=== PATIENT | female | born 1940 | race Caucasian/White ===

== ENCOUNTER → 2016-07-22 | Day surgery (SDC) | payer OTHER, BC ==
[2016-07-16 12:35] VITALS: BMI 26.0
[~2016-07-22] VITALS: Ht 160 cm; Wt 68.2 kg
[~2016-07-22] MED LIST: LIDOCAINE HCL 2% 2 ML VIAL (20MG/ML) ONE; METO25TA56 PO; MIDAZOLAM HCL 1 MG/ML 2ML VIAL ONE; NXM/40 PO; ONDANSETRON INJ 2 MG/ML 2 ML VIAL ONE; PROPOFOL IV EMULSION 10 MG/ML 20 ML VIAL IV ONE; SODIUM CHLORIDE 0.9% 500ML 500 ML IV ONE
[2016-07-22 07:57] VITALS: Ht 160 cm; Wt 68.2 kg
--- NOTE | 2016-07-22 08:37 | Endo History and Physical ---
History & Physical Date of Service: Jul 22, 2016. Chief Complaint: HX COLON CA Referring Physician: DR. FELIPE History of Present Illness 75 yo CF who presents for colonoscopy secondary to history of colon cancer. Past Medical History Hypertension Past Surgical History Hx Cardiac Surgery: No Hx Internal Defibrillator: No Hx Pacemaker: No Hx Abdominal Surgery: Yes (ROBBY BSO) Hx Post-Op Nausea and Vomiting: No Hx Cancer Surgery: Yes (COLON RESECTION) Hx Thoracic Surgery: No Hx Orthopedic: No Hx Urinary Tract Surgery: No Family History None Social History Smoking Status: Never Smoker Hx Substance Use: No Hx Alcohol Use: No Allergies Coded Allergies: Penicillins (Verified Adverse Reaction, Unknown, SWELLING, 07/22/16) Current Medications Reported Home Medications Medications Dose Route/Sig Max Daily Dose Days Date Category Nexium (Esomeprazole Magnesium) 40 Mg Capcr 40 Mg PO QAM 07/16/16 Reported Lopressor (Metoprolol Tartrate) 25 Mg Tab 25 Mg PO BID 06/03/08 Reported Vital Signs Weight (Kilograms): 68.18 Height (Feet): 5 Height (Inches): 3 Date Time Temp Pulse Resp B/P Pulse Ox O2 Delivery O2 Flow Rate FiO2 07/22/16 07:59 36.9 70 20 152/79 97 Room Air Physical Exam General Appearance: WD/WN, no apparent distress Respiratory/Chest: Auscultation: breath sounds normal Cardiovascular: Heart Auscultation: RRR Abdomen: Bowel Sounds: normal Inspection & Palpation: soft, non-distended, no tenderness, guarding & rebound Assessment and Plan Assessment: 75 yo CF who presents for colonoscopy secondary to history of colon cancer. Plan: Proceed with colonoscopy.
--- NOTE | 2016-07-22 08:53 | Discharge Instructions ---
Endoscopy Patient Instructions Date / Procedure(s) Performed Jul 22, 2016. Colonoscopy Allergy Information Coded Allergies: Penicillins (Verified Adverse Reaction, Unknown, SWELLING, 07/22/16) Discharge Date / Findings Jul 22, 2016. Internal hemorrhoids Normal ileocolic anastomosis Medication Instructions OK to resume all medications today as prescribed Reported Home Medications Medications Dose Route/Sig Max Daily Dose Days Date Category Nexium (Esomeprazole Magnesium) 40 Mg Capcr 40 Mg PO QAM 07/16/16 Reported Lopressor (Metoprolol Tartrate) 25 Mg Tab 25 Mg PO BID 06/03/08 Reported Provider Instructions Activity Restrictions - No exercising or heavy lifting for 24 hours. - Do not drink alcohol the day of the procedure. - Do not drive a car or operate machinery until the day after the procedure. - Do not make any important decisions or sign important papers in 24 hours after the procedure. Following Day: - Return to full activity which may include returning to work/school. Diet Start your diet with liquids and light foods (jello, soup, juice, toast). Then eat your usual diet if not nauseated. Treatment For Common After Affects For mild abdominal pain, bloating, or excessive gas: - Rest - Eat lightly - Lie on right side Follow-Up Information Follow-up with DR. FELIPE as scheduled Anesthesia Information What You Should Know You have had a procedure that required some medicine to reduce anxiety and discomfort. This treatment is called moderate sedation. After receiving the treatment, you may be sleepy, but you will be able to breathe on your own. The effects of the treatment may last for several hours. Follow these instructions along with Activity/Diet recommendations noted above: * Do NOT do anything where dizziness or clumsiness would be dangerous. * Rest quietly at home today, then you can be up and about tomorrow. * Have a responsible person stay with you the rest of today. * You may have had an I.V. today. If so, you may take the dressing off later today. Recommendations Call your doctor if: * Trouble breathing * Continuous vomiting for more than 24 hours * Temperature above 101 degrees * Severe abdominal pain or bloating * Pain not relieved by pain medicine ordered * There is increased drainage or redness from any incision * A large amount of rectal bleeding greater than 2-3 tablespoons. (If you had a polyp/s removed or have hemorrhoids, a small amount of blood - from the rectum is to be expected.) * You have any unanswered questions or concerns. IN THE EVENT OF A SERIOUS EMERGENCY, GO TO THE NEAREST EMERGENCY ROOM Your discharge instructions were prepared by provider Paras Rodriguez. Patient Instructions Signature Page Ebony Segal Patient (or Guardian) Signature/Date: I have read and understand the instructions given to me by my caregivers. Caregiver/RN/Doctor Signature/Date: The above-named patient and/or guardian has received patient instructions on this date. + Original Patient Signature Page (only) stays with chart. Please make copy for patient.
--- NOTE | 2016-07-22 08:59 | GI REPORT ---
Procedure Date: 07/22/2016 8:31 AM Procedure: Colonoscopy Indications: High risk colon cancer surveillance: Personal history of colon cancer Medicines: Monitored Anesthesia Care Complications: No immediate complications. Estimated Blood Loss: Estimated blood loss: none. Procedure: Pre-Anesthesia Assessment: - Prior to the procedure, a History and Physical was performed, and patient medications and allergies were reviewed. The patient's tolerance of previous anesthesia was also reviewed. The risks and benefits of the procedure and the sedation options and risks were discussed with the patient. All questions were answered, and informed consent was obtained. Prior Anticoagulants: The patient has taken no previous anticoagulant or antiplatelet agents. ASA Grade Assessment: II - A patient with mild systemic disease. After reviewing the risks and benefits, the patient was deemed in satisfactory condition to undergo the procedure. After I obtained informed consent, the scope was passed under direct vision. Throughout the procedure, the patient's blood pressure, pulse, and oxygen saturations were monitored continuously. The scope was introduced through the anus and advanced to the terminal ileum. The colonoscopy was performed without difficulty. The patient tolerated the procedure well. The quality of the bowel preparation was good. The terminal ileum, ileocecal valve, appendiceal orifice, and rectum were photographed. Findings: There was evidence of a prior [id number] ileo-colonic anastomosis in the sigmoid colon. This was patent and was characterized by healthy appearing mucosa. The anastomosis was traversed. Non-bleeding internal hemorrhoids were found during retroflexion. The hemorrhoids were small. Impression: - Patent [id number] ileo-colonic anastomosis, characterized by healthy appearing mucosa. - Non-bleeding internal hemorrhoids. - No specimens collected. Recommendation: - Resume previous diet. - Continue present medications. - Repeat colonoscopy in 1 year for surveillance. - Return to primary care physician as previously scheduled. Paras Rodriguez DO 07/22/2016 8:58:42 AM This report has been signed electronically. Note Initiated On: 07/22/2016 8:31 AM I attest to the content of the Intraoperative Record and orders documented therein, exceptions below
[2016-07-22 09:23] VITALS: BP 115/66; PULSE 58; O2SAT 93
--- NOTE | 2016-07-22 15:16 | Anesthesiology Progress Note ---
Anesthesia Post Op Note Date & Time Jul 22, 2016 at 15:16 Vital Signs Pain Intensity: 0 Vital Signs Past 12 Hours Date Time Temp Pulse Resp B/P Pulse Ox O2 Delivery O2 Flow Rate FiO2 07/22/16 09:23 58 20 115/66 93 Room Air 07/22/16 09:07 66 20 128/60 93 Room Air 07/22/16 08:53 68 20 115/61 99 Room Air 07/22/16 07:59 36.9 70 20 152/79 97 Room Air Notes Mental Status: alert / awake / arousable, participated in evaluation Pt Amnestic to Procedure: Yes Nausea / Vomiting: adequately controlled Pain: adequately controlled Airway Patency, RR, SpO2: stable & adequate BP & HR: stable & adequate Hydration State: stable & adequate Anesthetic Complications: no major complications apparent
== END | disposition home or self-care (01) ==
LOC: C.GI 07:40
PROVIDERS: ATTEND Internal Medicine
DX: Z12.11 Encounter for screening for malignant neoplasm of colon (principal); Z85.038 Personal history of other malignant neoplasm of large intestine; Z98.0 Intestinal bypass and anastomosis status; K64.8 Other hemorrhoids; I10 Essential (primary) hypertension; Z90.49 Acquired absence of other specified parts of digestive tract; Z90.89 Acquired absence of other organs; Z88.0 Allergy status to penicillin

== ENCOUNTER → 2016-08-04 | Outpatient (CLI) | payer OTHER, BC ==
[~2016-08-04] MED LIST changes: -LIDOCAINE HCL 2% 2 ML VIAL (20MG/ML) ONE; -MIDAZOLAM HCL 1 MG/ML 2ML VIAL ONE; -ONDANSETRON INJ 2 MG/ML 2 ML VIAL ONE; -PROPOFOL IV EMULSION 10 MG/ML 20 ML VIAL IV ONE; -SODIUM CHLORIDE 0.9% 500ML 500 ML IV ONE
[2016-08-04 13:20] LABS: ESTIMATED AVERAGE GLUCOSE 143 mg/dl; HA1C FLAG Normal (Normal)
[2016-08-04 13:27] LABS: BLOOD UREA NITROGEN 11 mg/dl (7-18); CALCIUM 8.8 mg/dl (8.5-10.1); CARBON DIOXIDE 26 mmol/L (21-32); CHLORIDE 110 mmol/L (98-107); CREATININE 0.89 mg/dl (0.60-1.20); GLUCOSE 116 mg/dl (70-99); POTASSIUM 3.9 mmol/L (3.5-5.1); SODIUM 144 mmol/L (136-145)
== END | disposition home or self-care (01) ==
LOC: C.LABPBG 08:14
PROVIDERS: ATTEND Family Medicine
DX: I10 Essential (primary) hypertension (principal); R73.09 Other abnormal glucose

== ENCOUNTER → 2017-04-24 | Outpatient (CLI) | payer OTHER, BC ==
--- NOTE | 2017-04-24 15:50 | MAMMOGRAPHY REPORT ---
BILATERAL DIGITAL SCREENING MAMMOGRAM TOMOSYNTHESIS WITH CAD: 04/24/2017 CLINICAL HISTORY: Routine screening. TECHNIQUE: Breast tomosynthesis in addition to standard 2D mammography was performed. Current study was also evaluated with a Computer Aided Detection (CAD) system. COMPARISON: Comparison is made to exams dated: 04/23/2016 mammogram - [facility], 04/17/2015 mammogram, 04/13/2014 mammogram, 04/11/2013 mammogram, 04/08/2012 mammogram, and 04/01/2011 mammogram - [facility] BREAST COMPOSITION: There are scattered areas of fibroglandular density in both breasts. FINDINGS: No suspicious masses, calcifications, or areas of architectural distortion are noted in ei ther breast. There has been no significant interval change compared to prior exams. Scattered bilater al benign-appearing calcifications are not significantly changed. IMPRESSION: ACR BI-RADS CATEGORY 2: BENIGN There is no mammographic evidence of malignancy. A 1 year screening mammogram is recommended. The pa tient will receive written notification of the results. Approximately 10% of breast cancers are not detected with mammography. A negative mammographic report should not delay biopsy if a clinically suggestive mass is present. Era King M.D. ah/:04/24/2017 15:31:21 [employer] Spr[employer] Mixer: Sil COLINDRES)(M), [facility] letter sent: Normal 1/2 BI-RADS Code: ACR BI-RADS Category 2: Benign
== END | disposition home or self-care (01) ==
LOC: C.MAMM 13:54
PROVIDERS: ATTEND Family Medicine
DX: Z12.31 Encounter for screening mammogram for malignant neoplasm of breast (principal)

== ENCOUNTER → 2017-05-06 | Outpatient (CLI) | payer OTHER, BC ==
[~2017-05-06] MED LIST changes: +OPTIRAY 320 IV PRN
--- NOTE | 2017-05-06 12:58 | DIAGNOSTIC IMAGING REPORT ---
ABDOMEN AND PELVIS CT WITH IV AND ORAL CONTRAST CT DOSE: 695.87 mGy.cm HISTORY: Colon cancer. Follow-up. TECHNIQUE: Multiaxial CT images of the abdomen and pelvis were performed following the use of intravenous and oral contrast. A dose lowering technique was utilized adhering to the principles of ALARA. COMPARISON STUDY: Abdomen and pelvis CT 05/08/2016. FINDINGS: Hepatic steatosis. No hepatic or splenic masses. The adrenal glands, pancreas, gallbladder are unremarkable. There are few bilateral small peripelvic renal cysts. The kidneys enhance normally. No hydronephrosis. There is a 1.6 cm lipoma within the proximal duodenum. The bladder is unremarkable. Hysterectomy. There is again noted postoperative changes consistent with a subtotal colectomy with ileocolonic anastomosis. No bowel wall thickening or obstruction. No retroperitoneal lymphadenopathy. No pelvic lymphadenopathy. The lung bases are clear. No pneumoperitoneum. No pneumatosis. No suspicious lytic or blastic osseous lesions. Degenerative changes within the lumbar spine. IMPRESSION: 1. No evidence for metastatic disease within the abdomen or pelvis. 2. Postoperative changes as described above. Electronically signed by: Wilton Brambila M.D. 05/06/2017 12:57 PM Dictated Date/Time: 05/06/2017 12:39 PM
--- NOTE | 2017-05-06 13:11 | DIAGNOSTIC IMAGING REPORT ---
CT SCAN OF THE CHEST WITH IV CONTRAST CLINICAL HISTORY: Colon cancer. COMPARISON STUDY: Chest CT scans dated 05/08/2016 and 06/13/2015. TECHNIQUE: Following the IV administration of 117 cc of Optiray 320, CT scan of the thorax was performed from the thoracic inlet to the upper abdomen. Images are reviewed in the axial, sagittal, and coronal planes. IV contrast was administered without complication. A dose lowering technique was utilized adhering to the principles of ALARA. FINDINGS: Thyroid: Imaged portions of the thyroid gland are normal in size and attenuation. Thoracic aorta: The thoracic aorta is normal in caliber and demonstrates standard 3-vessel arch anatomy. No dissection is seen. Pulmonary vasculature: The pulmonary trunk is normal in caliber. There are no filling defects identified in the central pulmonary vessels to indicate pulmonary embolus. Note that this examination was not protocoled for evaluation of the pulmonary arteries. Heart: The heart is normal in size and configuration, and without pericardial effusion. Lungs and pleural spaces: There is biapical scarring. No airspace consolidation or pleural effusion is seen. The trachea and central airways are clear. 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 A calcified granuloma is present at the left lung base. No concerning pulmonary lesion is seen. Mediastinum: There is no mediastinal lymphadenopathy. Rosalinda: Clear. Axillae: There is no axillary lymphadenopathy. Upper abdomen: Findings suggest hepatic steatosis. A duodenal lipoma is noted. Partially visualized upper abdominal viscera is otherwise within normal limits. Skeletal structures: The skeletal structures are osteopenic. No lytic or blastic bony lesions are seen. IMPRESSION: 1. There is no evidence of intrathoracic metastatic disease. 2. The lungs are clear. Electronically signed by: Last Bradford M.D. 05/06/2017 1:10 PM Dictated Date/Time: 05/06/2017 1:06 PM
== END | disposition home or self-care (01) ==
LOC: C.CTS 09:31
PROVIDERS: ATTEND Colon & Rectal Surgery
DX: C18.9 Malignant neoplasm of colon, unspecified (principal)

== ENCOUNTER → 2017-07-22 | Day surgery (SDC) | payer OTHER, BC ==
[2017-07-13 08:38] VITALS: Ht 160 cm; Wt 69.5 kg
[~2017-07-22] VITALS: Ht 160 cm; Wt 69.5 kg
[~2017-07-22] MED LIST changes: +LIDOCAINE HCL 2% 2 ML VIAL (20MG/ML) ONE; +MIDAZOLAM HCL 1 MG/ML 2ML VIAL ONE; +ONDANSETRON INJ 2 MG/ML 2 ML VIAL ONE; -OPTIRAY 320 IV PRN; +PROPOFOL IV EMULSION 10 MG/ML 20 ML VIAL IV ONE; +SODIUM CHLORIDE 0.9% 500ML 500 ML IV ONE
--- NOTE | 2017-07-22 09:15 | Endo History and Physical ---
History & Physical Date of Service: Jul 22, 2017. Chief Complaint: History of Colon CA Referring Physician: Dr. Gold History of Present Illness 76 yo CF who presents for colonoscopy secondary to history of colon cancer. Past Medical History Hypertension Past Surgical History Hx Cardiac Surgery: No Hx Internal Defibrillator: No Hx Pacemaker: No Hx Abdominal Surgery: Yes (ROBBY BSO) Hx of Implantable Prosthesis: No Hx Post-Op Nausea and Vomiting: No Hx Cancer Surgery: Yes (COLON RESECTION) Hx Thoracic Surgery: No Hx Orthopedic: No Hx Urinary Tract Surgery: No Family History None Social History Smoking Status: Never Smoker Hx Substance Use: No Hx Alcohol Use: No Allergies Coded Allergies: Levofloxacin (Verified Allergy, Unknown, ITCHING/RASH, 07/13/17) Penicillins (Verified Adverse Reaction, Unknown, SWELLING, 07/13/17) Current Medications Reported Home Medications Medications Dose Route/Sig Max Daily Dose Days Date Category Nexium (Esomeprazole Magnesium) 40 Mg Capcr 40 Mg PO QAM 07/16/16 Reported Lopressor (Metoprolol Tartrate) 25 Mg Tab 25 Mg PO BID 06/03/08 Reported Vital Signs Weight (Kilograms): 69.55 Height (Feet): 5 Height (Inches): 3 Date Time Temp Pulse Resp B/P (MAP) Pulse Ox O2 Delivery O2 Flow Rate FiO2 07/22/17 08:55 166/96 (119) 07/22/17 08:52 36.9 74 18 153/113 (126) 94 Room Air Physical Exam General Appearance: WD/WN, no apparent distress Respiratory/Chest: Auscultation: breath sounds normal Cardiovascular: Heart Auscultation: RRR Abdomen: Bowel Sounds: normal Inspection & Palpation: soft, non-distended, no tenderness, guarding & rebound Assessment and Plan Assessment: 76 yo CF who presents for colonoscopy secondary to history of colon cancer. Plan: Proceed with colonoscopy
--- NOTE | 2017-07-22 09:42 | Discharge Instructions ---
Endoscopy Patient Instructions Date / Procedure(s) Performed Jul 22, 2017. Colonoscopy Allergy Information Coded Allergies: Levofloxacin (Verified Allergy, Unknown, ITCHING/RASH, 07/22/17) Penicillins (Verified Adverse Reaction, Unknown, SWELLING, 07/22/17) Discharge Date / Findings Jul 22, 2017. History of partial colectomy Internal hemorrhoids Medication Instructions OK to resume all medications today as prescribed Reported Home Medications Medications Dose Route/Sig Max Daily Dose Days Date Category Nexium (Esomeprazole Magnesium) 40 Mg Capcr 40 Mg PO QAM 07/16/16 Reported Lopressor (Metoprolol Tartrate) 25 Mg Tab 25 Mg PO BID 06/03/08 Reported Provider Instructions Activity Restrictions - No exercising or heavy lifting for 24 hours. - Do not drink alcohol the day of the procedure. - Do not drive a car or operate machinery until the day after the procedure. - Do not make any important decisions or sign important papers in 24 hours after the procedure. Following Day: - Return to full activity which may include returning to work/school. Diet Start your diet with liquids and light foods (jello, soup, juice, toast). Then eat your usual diet if not nauseated. Treatment For Common After Affects For mild abdominal pain, bloating, or excessive gas: - Rest - Eat lightly - Lie on right side Follow-Up Information [facility] with [facility] scheduled Anesthesia Information What You Should Know You have had a procedure that required some medicine to reduce anxiety and discomfort. This treatment is called moderate sedation. After receiving the treatment, you may be sleepy, but you will be able to breathe on your own. The effects of the treatment may last for several hours. Follow these instructions along with Activity/Diet recommendations noted above: * Do NOT do anything where dizziness or clumsiness would be dangerous. * Rest quietly at home today, then you can be up and about tomorrow. * Have a responsible person stay with you the rest of today. * You may have had an I.V. today. If so, you may take the dressing off later today. Recommendations Call your doctor if: * Trouble breathing * Continuous vomiting for more than 24 hours * Temperature above 101 degrees * Severe abdominal pain or bloating * Pain not relieved by pain medicine ordered * There is increased drainage or redness from any incision * A large amount of rectal bleeding greater than 2-3 tablespoons. (If you had a polyp/s removed or have hemorrhoids, a small amount of blood - from the rectum is to be expected.) * You have any unanswered questions or concerns. IN THE EVENT OF A SERIOUS EMERGENCY, GO TO THE NEAREST EMERGENCY ROOM Your discharge instructions were prepared by provider Paras Rodriguez. Patient Instructions Signature Page Ebony Segal Patient (or Guardian) Signature/Date: I have read and understand the instructions given to me by my caregivers. Caregiver/RN/Doctor Signature/Date: The above-named patient and/or guardian has received patient instructions on this date. + Original Patient Signature Page (only) stays with chart. Please make copy for patient.
--- NOTE | 2017-07-22 09:52 | GI REPORT ---
Procedure Date: 07/22/2017 9:09 AM Procedure: Colonoscopy Indications: High risk colon cancer surveillance: Personal history of colon cancer Medicines: Monitored Anesthesia Care Complications: No immediate complications. Estimated Blood Loss: Estimated blood loss: none. Procedure: Pre-Anesthesia Assessment: - Prior to the procedure, a History and Physical was performed, and patient medications and allergies were reviewed. The patient's tolerance of previous anesthesia was also reviewed. The risks and benefits of the procedure and the sedation options and risks were discussed with the patient. All questions were answered, and informed consent was obtained. Prior Anticoagulants: The patient has taken no previous anticoagulant or antiplatelet agents. ASA Grade Assessment: II - A patient with mild systemic disease. After reviewing the risks and benefits, the patient was deemed in satisfactory condition to undergo the procedure. After I obtained informed consent, the scope was passed under direct vision. Throughout the procedure, the patient's blood pressure, pulse, and oxygen saturations were monitored continuously. The scope was introduced through the anus and advanced to the ileocolonic anastomosis. The colonoscopy was performed without difficulty. The patient tolerated the procedure well. The quality of the bowel preparation was good. The rectum was photographed. Findings: The perianal and digital rectal examinations were normal. There was evidence of a prior end-to-side ileo-colonic anastomosis in the sigmoid colon. This was patent and was characterized by healthy appearing mucosa. Non-bleeding internal hemorrhoids were found during retroflexion. The hemorrhoids were small. Impression: - Patent end-to-side ileo-colonic anastomosis, characterized by healthy appearing mucosa. - Non-bleeding internal hemorrhoids. - No specimens collected. Recommendation: - Resume previous diet. - Continue present medications. - Repeat colonoscopy in 3 years for surveillance. - Return to primary care physician as previously scheduled. Paras Rodriguez DO 07/22/2017 9:51:59 AM This report has been signed electronically. Note Initiated On: 07/22/2017 9:09 AM I attest to the content of the Intraoperative Record and orders documented therein, exceptions below
--- NOTE | 2017-07-22 10:07 | Anesthesiology Progress Note ---
Anesthesia Post Op Note Date & Time Jul 22, 2017 at 10:07 Vital Signs Pain Intensity: 0 Vital Signs Past 12 Hours Date Time Temp Pulse Resp B/P (MAP) Pulse Ox O2 Delivery O2 Flow Rate FiO2 07/22/17 09:55 61 18 129/82 (98) 95 Room Air 07/22/17 09:41 96 Nasal Cannula 2 07/22/17 09:40 67 20 112/71 (85) 91 Room Air 07/22/17 08:55 166/96 (119) 07/22/17 08:52 36.9 74 18 153/113 (126) 94 Room Air Notes Mental Status: alert / awake / arousable, participated in evaluation Pt Amnestic to Procedure: Yes Nausea / Vomiting: adequately controlled Pain: adequately controlled Airway Patency, RR, SpO2: stable & adequate BP & HR: stable & adequate Hydration State: stable & adequate Anesthetic Complications: no major complications apparent
[2017-07-22 10:10] VITALS: BP 128/82; PULSE 62; O2SAT 97
== END | disposition home or self-care (01) ==
LOC: C.GI 08:23
PROVIDERS: ATTEND Internal Medicine
DX: Z12.11 Encounter for screening for malignant neoplasm of colon (principal); K64.8 Other hemorrhoids; Z85.038 Personal history of other malignant neoplasm of large intestine; I10 Essential (primary) hypertension; E11.9 Type 2 diabetes mellitus without complications; Z88.0 Allergy status to penicillin; Z88.1 Allergy status to other antibiotic agents; Z90.89 Acquired absence of other organs

== ENCOUNTER 2023-04-12 16:42 | Observation (INO) ==
--- NOTE | 2023-04-12 16:50 | ED Triage Note ---
Date of Service April 12, 2023 History of Present Illness This patient was briefly evaluated while in triage. An abbreviated physical exam was performed. This patient is a 82-year-old Female who presents to the ED for evaluation of syncope. She is unsure what happened. She was trimming a roxanne tree and was walking back into living room and passed out. Out for a split second and back up. Struck L arm when passed out. Physical Exam GENERAL: 82 year old female. In no acute distress. SKIN: No lesions or rashes. L upper arm skin tear/superficial lacerations noted. HEART: Regular rate and rhythm. LUNGS: Clear to auscultation. ABDOMEN: Bowel sounds normoactive. No guarding or rigidity. No tenderness of palpation. NEURO: Alert and oriented. No deficits. MUSCULOSKELETAL: No deformities to inspection of the extremities. PSYCH: Patient is pleasant and answers all questions appropriately. Initial orders for labs and / or imaging were placed and patient was placed in the waiting area until a bed is available. Please see further documentation for the full ED course.
--- NOTE | 2023-04-12 17:26 | XRay Report ---
XR chest 1V not portable CLINICAL HISTORY: Syncope. COMPARISON STUDY: Chest CT May 06, 2017. Chest radiograph February 12, 2023. FINDINGS: Lung volumes are normal. Lungs are clear. There is no pneumothorax or pleural effusion. Car diac size is normal. Mediastinal contours are normal. There is no evidence for pulmonary edema. Mild S-shaped curvature of the thoracolumbar spine is incidentally noted. Patient is rotated. IMPRESSION: No acute cardiopulmonary findings. ACT 112: Negative or not required by law. Electronically signed by: Jarrod Alaniz M.D. 04/12/2023 5:24 PM
[2023-04-12 17:34] LABS: Basophils # (auto) 0.03 K/uL (0.00-0.20); Basophils % (auto) 0.4 %; Eosinophils # (auto) 0.17 K/uL (0.00-0.50); Hematocrit (blood only) 39.4 % (37.0-47.0); Hemoglobin 13.3 g/dl (12.0-16.0); Immature Granulocytes # (auto) 0.03 K/uL (0.01-0.20); Immature Granulocytes % (auto) 0.4 %; Lymphocytes # (auto) 1.56 K/uL (1.20-3.40); Lymphocytes % (auto) 18.3 %; Mean Corpuscular Hemoglobin 30.4 pg (25.0-34.0); Mean Corpuscular Hgb Conc 33.8 g/dL (32.0-36.0); Mean Platelet Volume 9.3 fL (9.4-12.4); Monocytes # (auto) 0.66 K/uL (0.11-0.59); Monocytes % (auto) 7.7 %; Neutrophils # (auto) 6.09 K/uL (1.40-6.50); Neutrophils % (auto) 71.2 %; Platelet Count 220 K/uL (130-400); RDW Coefficient of Variation 13.3 % (11.5-14.5); RDW Standard Deviation 43.8 fL (36.4-46.3); Red Blood Count 4.38 M/uL (4.20-5.40); White Blood Count 8.54 K/ul (4.8-10.8)
[2023-04-12 17:43] LABS: Albumin Globulin Ratio 1.5 (0.9-2); Albumin Level 4.2 gm/dl (3.4-5.0); BUN Creatinine Ratio 13.2 (10-20); Bilirubin,Total 0.5 mg/dl (0.2-1.0); Calcium 9.8 mg/dl (8.6-10.3); Creatinine Clr Calc Pharmacy 51.6 ml/min; Est GFR (African American) 83.5 ml/min; Globulin 2.8 gm/dl (2.5-4.0); Magnesium 1.9 mg/dl (1.7-2.4); Potassium 3.8 mmol/L (3.5-5.1)
[2023-04-12 17:50] LABS: Troponin I High Sensitivity 4.4 pg/ml (0-14)
[2023-04-12 17:58] LABS: INR 0.9 (0.9-1.1); Partial Thromboplastin Ratio 0.9; Partial Thromboplastin Time 24.4 Seconds (21.0-31.0); Prothrombin Time 10.3 Seconds (9.0-12.0)
[2023-04-12 17:59] LABS: Thyroid Stimulating Hormone 2.439 uIu/ml (0.300-4.500)
--- NOTE | 2023-04-12 18:20 | Emergency Department Note ---
Impression & Plan Syncope, High serum chloride ED Provider Note NAME: KARRIE MCDONALD AGE: 82 SEX: F : 1940 ARRIVES VIA: Walk-In INFORMANT: Patient ED PROVIDER(S): Narciso Rivera DO CHIEF COMPLAINT: Syncope HPI: Patient is an 82-year-old female with a past medical history of hypertension, diabetes who presents to the ER following a syncopal episode. She was walking and passed out and hit the ground. She woke up right away. She does not believe that she hit her head or neck. Denies any head or neck pain. No chest pain or shortness of breath preceding or following the episode. No belly pain, nausea, vomiting, or diarrhea before hand. No dysuria, urgency, or frequency. No other exacerbating or remitting factors. ADDITIONAL HISTORY OBTAINED: Per HPI Chronic Medical/Social Conditions Affecting Care: Per HPI PAST MEDICAL HISTORY:See Below PAST SURGICAL HISTORY:See Below FAMILY HISTORY:See Below SOCIAL HISTORY:See Below HOME MEDICATIONS:See Below ALLERGIES:See Below VITALS:See Below PHYSICAL EXAMINATION: GENERAL: Sitting up in bed, alert, well appearing, well nourished, no distress, non-toxic EYE EXAM: normal conjunctiva. PERRL and EOM's intact. OROPHARYNX: no exudate, no erythema, lips, buccal mucosa, and tongue normal and mucous membranes are moist NECK: supple, no nuchal rigidity, no adenopathy, non-tender LUNGS: Clear to auscultation. Normal chest wall mechanics HEART: no murmurs, S1 normal and S2 normal ABDOMEN: abdomen soft, non-tender, normo-active bowel sounds, no masses, no rebound or guarding. BACK: Back is symmetrical on inspection and there is no deformity, no midline tenderness, no CVA tenderness. SKIN: Small abrasion to the left mid humerus UPPER EXTREMITIES: upper extremities are grossly normal. LOWER EXTREMITIES: No pitting edema. NEURO EXAM: Normal sensorium, cranial nerves II-XII intact, normal speech, no weakness of arms, no weakness of legs. No drift. Finger to nose intact. Gross sensation intact. MEDICAL DECISION MAKING: Patient is an 82-year-old female who presents ER for above-stated complaint with a syncopal episode without prodromal symptoms. IV was established blood work was obtained. Labs show no significant leukocytosis or anemia. INR unremarkable. BMP with slightly elevated chloride. LFTs bilirubin was unremarkable. Troponin was negative. TSH was normal. UA was clean. CT of the head was unremarkable. Chest x-ray was unremarkable. EKG was nondiagnostic. She was updated bedside. Discussed with the hospitalist for observation due to syncopal event with no prodromal symptoms. External Records Reviewed: Seen Dr. Mcgrath within the past month for elevated blood pressure Consults/Care Managements Discussions: Per [facility] Triage Nursing notes reviewed. Limited review of prior medical records performed Vital Signs: reviewed and remarkable for HTN Differential diagnosis: Differential diagnosis includes etiologies such as vasovagal event, infection, hypoglycemia, electrolyte abnormalities, cardiac sources, intracerebral event, toxicologic, neurologic, as well as others were entertained. ER treatment provided: See below Diagnostics interpreted by me include EKG and cardiac monitoring as listed below: -Cardiac Monitoring: An order was placed for continuous cardiac monitoring. The monitor shows a rate of 80 with sinus rhythm. -ECG: Sinus rhythm rate of 73 Normal axis No PVCs QTc 396 -Laboratory studies:Interpreted by me as stated above in MDM and shown below. Imaging studies: Xrays: As interpreted by me: Portable AP upright 1 view of the chest shows no focal infiltrate CTs show: CT head was negative Procedures:none Critical Care: None Past Med/Surg History Medical History (Updated 04/12/23 @ 20:30 by Narciso Rivera DO) Vitamin D deficiency History of colon cancer (2016) Acid reflux Diet-controlled diabetes mellitus Hypertension, goal below 150/90 Osteopenia Finger fracture Stomach ulcer Surgical History S/P cataract surgery 2020 History of colon resection (06/2015) [place] [facility] [place] pt states she only has 8 inches left of her colon History of tooth extraction History of dilation and curettage History of appendectomy ? pt states she is not sure if her appendix was removed during her hysterectomy S/P tonsillectomy S/P hysterectomy (~1975) [facility]SO Family History Father Diabetes Colorectal cancer Mother Diabetes Brother Hypertension Family history of diabetes mellitus Family hx colonic polyps Sister Family history of diabetes mellitus Other No family history of adverse response to anesthesia Denies family history of Ovarian cancer Prostate cancer Myocardial infarction Breast cancer Social History Smoking Status: Never smoker Second Hand Exposure: No; Do You Dip or Chew Tobacco: No; Hx Alcohol Use: No Hx Substance Use: No Preferred Language: Urdu Communication Ability: Effective Visual Impairment: No Limitations Hearing Ability: Normal Pet Counselor Required: No Beliefs That Will Affect Care: None marital status: Current Living Situation: Spouse current occupational status: retired How many Children do You have: 3 Feels Safe at Home: Yes Childhood Exposure to Second-Hand Smoke: No Diet: regular Diet Comment: regular caffeine: Yes during the past year weight has: remained stable Dental Care, Regularly: Yes Physical Activity Frequency: Daily Physical Activity Frequency Comment: House work Seatbelt Use: always Sunscreen Use: Yes Assistive Devices: Denture - Upper, Denture - Lower and Glasses Allergies Allergies Allergy/AdvReac Type Severity Reaction Status Date / Time Penicillins Allergy Intermediate SWELLING Verified 03/20/23 09:33 levofloxacin Allergy Mild ITCHING/GLEN Verified 03/20/23 09:33 H Home Meds Home Medications Medication Instructions Recorded Confirmed cetirizine 10 mg tablet 10 mg PO DAILY PRN Allergy Symptoms 03/21/22 04/12/23 triamcinolone acetonide 0.1 % 1 applic topical DAILY PRN as 03/20/23 04/12/23 topical cream directed Previous Rx's Medication Instructions Recorded naproxen 500 mg tablet 500 mg PO .COMPLEX pain #45 tabs 11/14/22 esomeprazole magnesium 40 mg 40 mg PO QAM #90 caps 01/22/23 capsule,delayed release metoprolol succinate 25 mg 25 mg PO BID #180 tabs 01/23/23 tablet,extended release 24 hr cholecalciferol (vitamin D3) 50 4,000 unit PO DAILY #90 caps 03/20/23 mcg (2,000 unit) capsule Results & Data (ED) Vital Signs Vital Signs - 24 hr 04/12/23 16:48 04/12/23 18:27 04/12/23 19:00 Temperature 36.3 C L Temperature Source Temporal Artery Scan Pulse Rate 76 69 64 Pulse Rhythm Regular Pulse Strength Normal Respiratory Rate 20 14 Respiratory Effort / Characteristics Non-Labored Spontaneous Respiratory Depth Normal Respiratory Pattern Regular Blood Pressure 199/98 H 182/81 H Blood Pressure Mean 131 98 Blood Pressure Position Sitting Pulse Oximetry 95 95 Oxygen Delivery Method Room Air Room Air Oxygen Flow Rate Sepsis Recent Fever Within 48 Hours No Sepsis New/Unexplained Change in Mental Status No Sepsis Action Taken by Nursing No Action Required 04/12/23 19:02 04/12/23 19:30 04/12/23 19:30 Temperature Temperature Source Pulse Rate 66 69 Pulse Rhythm Pulse Strength Respiratory Rate 30 H 19 Respiratory Effort / Characteristics Respiratory Depth Respiratory Pattern Blood Pressure 158/86 H Blood Pressure Mean 132 Blood Pressure Position Pulse Oximetry 94 93 Oxygen Delivery Method Room Air Oxygen Flow Rate 0 Sepsis Recent Fever Within 48 Hours Sepsis New/Unexplained Change in Mental Status Sepsis Action Taken by Nursing Laboratory Data 04/12/23 17:08 04/12/23 17:08 Lab Results 04/12/23 04/12/23 Range/Units 17:08 19:56 WBC 8.54 (4.8-10.8) K/ul RBC 4.38 (4.20-5.40) M/uL Hgb 13.3 (12.0-16.0) g/dl Hct 39.4 (37.0-47.0) % MCV 90.0 (80.0-100.0) fL MCH 30.4 (25.0-34.0) pg MCHC 33.8 (32.0-36.0) g/dL RDW Std Deviation 43.8 (36.4-46.3) fL RDW Coeff of Srinivasa 13.3 (11.5-14.5) % Plt Count 220 (130-400) K/uL MPV 9.3 L (9.4-12.4) fL Immature Gran % (Auto) 0.4 % Neut % (Auto) 71.2 % Lymph % (Auto) 18.3 % Bertie % (Auto) 7.7 % Eos % (Auto) 2.0 % Baso % (Auto) 0.4 % Neut # (Auto) 6.09 (1.40-6.50) K/uL Lymph # (Auto) 1.56 (1.20-3.40) K/uL Bertie # (Auto) 0.66 H (0.11-0.59) K/uL Eos # (Auto) 0.17 (0.00-0.50) K/uL Baso # (Auto) 0.03 (0.00-0.20) K/uL Immature Gran # (Auto) 0.03 (0.01-0.20) K/uL PT 10.3 (9.0-12.0) Seconds INR 0.9 (0.9-1.1) APTT 24.4 (21.0-31.0) Seconds PTT Ratio 0.9 Sodium 141 (136-145) mmol/L Potassium 3.8 (3.5-5.1) mmol/L Chloride 109 H (98-107) mmol/L Carbon Dioxide 24 (21-32) mmol/L Anion Gap 8 (3-11) BUN 10 (6-23) mg/dl Creatinine 0.76 (0.6-1.2) mg/dl Est Cr Clr Drug Dosing 51.6 ml/min Est GFR ( Amer) 83.5 ml/min Est GFR (Non-Af Amer) 72.0 ml/min BUN/Creatinine Ratio 13.2 (10-20) Glucose 180 H (70-99(Fasting)) mg/dl Calcium 9.8 (8.6-10.3) mg/dl Magnesium 1.9 (1.7-2.4) mg/dl Total Bilirubin 0.5 (0.2-1.0) mg/dl AST 15 (13-39) U/L ALT 15 (7-52) U/L Alkaline Phosphatase 68 (34-104) U/L Troponin I High Sens 4.4 (0-14) pg/ml Total Protein 7.0 (6.0-8.3) gm/dl Albumin 4.2 (3.4-5.0) gm/dl Globulin 2.8 (2.5-4.0) gm/dl Albumin/Globulin Ratio 1.5 (0.9-2) TSH 2.439 (0.300-4.500) uIu/ml Urine Color Yellow Urine Appearance Clear (Clear) Urine pH 7.0 (4.5-7.5) Ur Specific Marshall 1.010 (1.000-1.030) Urine Protein Negative (Negative) Urine Glucose (UA) Negative (Negative) Urine Ketones Negative (Negative) Urine Blood Negative (Negative) Urine Nitrite Negative (Negative) Urine Bilirubin Negative (Negative) Urine Urobilinogen Negative (Negative) Ur Leukocyte Esterase Trace H (Negative) Urine WBC (Auto) 1-5 (0-5) /hpf Urine RBC (Auto) 0-4 (0-4) /hpf U Hyaline Cast (Auto) 0 (0-5) /lpf U Epithel Cells (Auto) 5-10 H (0-5) /lpf Urine Bacteria (Auto) Negative (Negative) Imaging Data Radiologist's Impression: Chest X-Ray 04/12/23 16:50 XR chest 1V not portable CLINICAL HISTORY: Syncope. COMPARISON STUDY: Chest CT May 06, 2017. Chest radiograph February 12, 2023. FINDINGS: Lung volumes are normal. Lungs are clear. There is no pneumothorax or pleural effusion. Cardiac size is normal. Mediastinal contours are normal. There is no evidence for pulmonary edema. Mild S-shaped curvature of the thoracolumbar spine is incidentally noted. Patient is rotated. IMPRESSION: No acute cardiopulmonary findings. ACT 112: Negative or not required by law. Electronically signed by: Jarrod Alaniz M.D. 04/12/2023 5:[address] 04/12/23 16:50 CT OF THE HEAD WITHOUT CONTRAST CLINICAL HISTORY: Syncope. COMPARISON STUDY: Head CT T June 03, 2008. CT DOSE: 547.75 mGy.cm TECHNIQUE: Helical axial images of the head were obtained without IV contrast. Automated exposure control was utilized for the study. A dose lowering technique was utilized adhering to the principles of ALARA. FINDINGS: No acute intracranial hemorrhage, midline shift or mass effect is present. Mild ventricular dilatation is likely due to central atrophy. White matter hypodensity suggests small vessel disease. The basal cisterns are patent. No extra-axial collections are present. There are no findings to suggest acute dural sinus thrombosis or acute territorial infarct. No significant calvarial abnormalities are present. Visualized portions of the sinuses and mastoid air cells are clear. IMPRESSION: No acute intracranial findings. ACT 112: Negative or not required by law. Electronically signed by: Jarrod Alaniz M.D. 04/12/2023 7:28 PM Discharge Plan Visit Data Chief Complaint: Syncope Stated Complaint: PASSED OUT, FELL, CUT L ARM ED Provider: Narciso Rivera Discharge Problem: Syncope, High serum chloride Forms Stand Alone Forms: My [facility] Prescriptions Prescriptions: No Action esomeprazole magnesium 40 mg capsule,delayed release(DR/EC) 40 mg PO QAM Qty: 90 1RF metoprolol succinate 25 mg tablet extended release 24 hr 25 mg PO BID Qty: 180 1RF naproxen 500 mg tablet 500 mg PO .COMPLEX Qty: 45 0RF Rx Instructions: 500 mg PO BID x 14 days, then BID PRN pain; cetirizine 10 mg tablet 10 mg PO DAILY PRN (Reason: Allergy Symptoms) triamcinolone acetonide 0.1 % cream 1 applic topical DAILY PRN (Reason: as directed) cholecalciferol (vitamin D3) 50 mcg (2,000 unit) capsule 4,000 unit PO DAILY Qty: 90 3RF Referrals Referrals: Jannette Mcgrath DO [Primary Care Provider] - Discharge Problem: Syncope Qualifiers: Syncope type: unspecified Qualified Code(s): R55 - Syncope and collapse
--- NOTE | 2023-04-12 19:30 | CT Scan Report ---
CT OF THE HEAD WITHOUT CONTRAST CLINICAL HISTORY: Syncope. COMPARISON STUDY: Head CT T June 03, 2008. CT DOSE: 547.75 mGy.cm TECHNIQUE: Helical axial images of the head were obtained without IV contrast. Automated exposure con trol was utilized for the study. A dose lowering technique was utilized adhering to the principles o f ALARA. FINDINGS: No acute intracranial hemorrhage, midline shift or mass effect is present. Mild ventricular dilatation is likely due to central atrophy. White matter hypodensity suggests small vessel disease. The basal cisterns are patent. No extra-axial collections are present. There are no findings to sugg est acute dural sinus thrombosis or acute territorial infarct. No significant calvarial abnormalities are present. Visualized portions of the sinuses and mastoid air cells are clear. IMPRESSION: No acute intracranial findings. ACT 112: Negative or not required by law. Electronically signed by: Jarrod Alaniz M.D. 04/12/2023 7:28 PM
--- NOTE | 2023-04-12 19:54 | History & Physical Report ---
Date of Service April 12, 2023 Assessment & Plan (1) Syncope: Plan: Patient presents to the hospital following a syncopal episode. Etiology is uncertain, could be vasovagal. We will obtain orthostatic vital signs EKG did not show any arrhythmias. We will obtain 2D echo to rule out any structural heart abnormalities Monitor on telemetry (2) Hypertension, goal below 150/90: Plan: Blood pressure 158/86 Resume home medications Recheck blood pressure (3) Diet-controlled diabetes mellitus: Plan: Blood glucose under good control Continue to monitor blood glucose. Plan Admit to telemetry Full code SCD prophylaxis History of Present Illness Chief Complaint: Syncope Primary Care Provider: Jannette Mcgrath Is an 82-year-old female with a history of hypertension, type 2 diabetes who presents to the hospital today on account of a syncopal episode. According to the patient she was walking from her sitting room to the kitchen when all of a sudden she passed out and dropped to the floor. She said she woke up right away and asked her partner to get her up. She did not feel any palpitations or chest pain or dizziness prior to falling down and she did not lose consciousness. In the emergency department blood pressure was elevated, CT scan of the head was done which did not show any acute pathology. Of note, she said this is the first time she is having this type of episode before. She will be admitted to the hospital for observation. Allergies Allergy/AdvReac Type Severity Reaction Status Date / Time Penicillins Allergy Intermediate SWELLING Verified 03/20/23 09:33 levofloxacin Allergy Mild ITCHING/GLEN Verified 03/20/23 09:33 H Home Medications Medication Instructions Recorded Confirmed Type cetirizine 10 mg tablet 10 mg PO DAILY PRN Allergy Symptoms 03/21/22 04/12/23 History naproxen 500 mg tablet 500 mg PO .COMPLEX pain #45 tabs 11/14/22 04/12/23 Rx esomeprazole magnesium 40 mg 40 mg PO QAM #90 caps 01/22/23 04/12/23 Rx capsule,delayed release metoprolol succinate 25 mg 25 mg PO BID #180 tabs 01/23/23 04/12/23 Rx tablet,extended release 24 hr cholecalciferol (vitamin D3) 50 4,000 unit PO DAILY #90 caps 03/20/23 04/12/23 Rx mcg (2,000 unit) capsule triamcinolone acetonide 0.1 % 1 applic topical DAILY PRN as 03/20/23 04/12/23 History topical cream directed Past Med/Surg History Medical History (Updated 04/12/23 @ 19:52 by Chong Ng MD) Vitamin D deficiency History of colon cancer (2017) Acid reflux Diet-controlled diabetes mellitus Hypertension, goal below 150/90 Osteopenia Finger fracture Stomach ulcer Surgical History S/P cataract surgery 2020 [place]06[place] [facility] [place] pt states she only has 8 inches left of her colon History of tooth extraction History of dilation and curettage History of appendectomy ? pt states she is not sure if her appendix was removed during her hysterectomy S/P tonsillectomy S/P hysterectomy (~1975) [facility]SO Family History Father Diabetes Colorectal cancer Mother Diabetes Brother Hypertension Family history of diabetes mellitus Family hx colonic polyps Sister Family history of diabetes mellitus Other No family history of adverse response to anesthesia Denies family history of Ovarian cancer Prostate cancer Myocardial infarction Breast cancer Social History Smoking Status: Never smoker Second Hand Exposure: No; Do You Dip or Chew Tobacco: No; Hx Alcohol Use: No Hx Substance Use: No Preferred Language: Colombian Communication Ability: Effective Visual Impairment: No Limitations Hearing Ability: Normal Explosive Ordnance Specialist Required: No Beliefs That Will Affect Care: None marital status: Current Living Situation: Spouse current occupational status: retired How many Children do You have: 3 Feels Safe at Home: Yes Childhood Exposure to Second-Hand Smoke: No Diet: regular Diet Comment: regular caffeine: Yes during the past year weight has: remained stable Dental Care, Regularly: Yes Physical Activity Frequency: Daily Physical Activity Frequency Comment: House work Seatbelt Use: always Sunscreen Use: Yes Assistive Devices: Denture - Upper, Denture - Lower and Glasses Review of Systems Review of Systems: All systems reviewed are negative, apart from the ones contained in the history. Physical Exam Physical Exam: The patient is awake, alert and oriented 3, well developed and well nourished, normocephalic and atraumatic, lying in bed and in no acute distress. HEENT--PERRL, EOMI, mucous membranes and oropharynx mildly dry Neck--supple. No JVD. No bruits. Thyroid normal, trachea midline, no a denopathy. Heart--normal S1 and S2. No murmurs, rubs or gallops. Lungs--clear bilaterally, no respiratory distress, no accessory muscle use. Abdomen--normal bowel sounds and soft. Mild epigastric and left sided abdominal pain Extremities--no cyanosis or clubbing. No edema. Dermatologic--normal skin turgor, normal color, no abnormal lymph nodes, no rash. Neurologic--cranial nerves II through XII grossly intact. Rheumatologic--normal range of motion. Psychiatric--normal affect. Results & Data Results & Data Vital Signs (Past 12 Hours) Vital Signs Temp Pulse Resp BP Pulse Ox O2 Del Method O2 Flow Rate 04/12/23 19:30 69 19 04/12/23 19:30 66 30 H 158/86 H 93 Room Air 04/12/23 19:02 94 0 04/12/23 19:00 64 14 182/81 H 95 Room Air 04/12/23 18:27 69 04/12/23 16:48 97.3 F L 76 20 199/98 H 95 Room Air PG Care Time/CCT Total # of Minutes Spent Total Time Spent with Patient: Total time spent is greater than 50% in coordination of care (as documented) at patient's floor/unit and/or counseling patient: Coding Level of Care Code 33361 INT INP/OBS CARE 3/75MIN Diagnoses Syncope R55 Hypertension, goal below 150/90 I10 Diet-controlled diabetes mellitus E11.9 Time Spent (min) 75
[2023-04-12 20:13] LABS: Appearance Urine Clear (Clear); Bacteria Urine Automated Negative (Negative); Bilirubin Urine Negative (Negative); Blood Urine Negative (Negative); Cast Urine Automated 0 /lpf (0-5); Color Urine Yellow; Glucose Urine UA Negative (Negative); Ketones Urine Negative (Negative); Leukocyte Esterase Urine Trace (Negative); Nitrite Urine Negative (Negative); Protein Urine Negative (Negative); RBC Urine Automated 0-4 /hpf (0-4); Urobilinogen Urine Negative (Negative)
[2023-04-12] MEDS ORDERED: ACETAMINOPHEN 325 MG TAB PO PRN (21:54)
[2023-04-12] MEDS ORDERED: CETIRIZINE HCL 10 MG TABLET PO PRN (21:54)
[2023-04-12] MEDS ORDERED: NAPROXEN 250 MG TAB PO PRN (21:54)
[2023-04-12] MEDS ORDERED: TRIAMCINOLONE ACET 0.1% CR 15 GM TUBE TOP PRN (21:54)
[2023-04-12] MEDS: METOPROLOL SUCC 25MG EXT REL TAB PO SCH (23:28)
[2023-04-13] MEDS ORDERED: PANTOprazole 40 MG TAB PO SCH (09:00)
[2023-04-13] MEDS ORDERED: CHOLECALCIFEROL 1,000 UNITS 25 MCG TAB PO SCH (09:00)
[2023-04-13] MEDS: METOPROLOL SUCC 25MG EXT REL TAB PO SCH (10:18)
[2023-04-13 10:36] LABS: Basophils # (auto) 0.03 K/uL (0.00-0.20); Basophils % (auto) 0.3 %; Eosinophils # (auto) 0.15 K/uL (0.00-0.50); Eosinophils % (auto) 1.7 %; Hematocrit (blood only) 39.5 % (37.0-47.0); Hemoglobin 13.4 g/dl (12.0-16.0); Immature Granulocytes # (auto) 0.03 K/uL (0.01-0.20); Immature Granulocytes % (auto) 0.3 %; Lymphocytes # (auto) 1.52 K/uL (1.20-3.40); Lymphocytes % (auto) 17.5 %; Mean Corpuscular Hemoglobin 29.9 pg (25.0-34.0); Mean Corpuscular Hgb Conc 33.9 g/dL (32.0-36.0); Mean Corpuscular Volume 88.2 fL (80.0-100.0); Mean Platelet Volume 9.2 fL (9.4-12.4); Monocytes # (auto) 0.75 K/uL (0.11-0.59); Monocytes % (auto) 8.6 %; Neutrophils # (auto) 6.21 K/uL (1.40-6.50); Neutrophils % (auto) 71.6 %; Platelet Count 248 K/uL (130-400); RDW Coefficient of Variation 13.3 % (11.5-14.5); RDW Standard Deviation 42.8 fL (36.4-46.3); Red Blood Count 4.48 M/uL (4.20-5.40); White Blood Count 8.69 K/ul (4.8-10.8)
[2023-04-13 10:38] LABS: BUN Creatinine Ratio 9.6 (10-20); Calcium 9.7 mg/dl (8.6-10.3); Est GFR (African American) 87.7 ml/min; Est GFR (Non-African American) 75.6 ml/min; Magnesium 1.9 mg/dl (1.7-2.4); Potassium 3.7 mmol/L (3.5-5.1)
[2023-04-13 10:44] LABS: Troponin I High Sensitivity 3.9 pg/ml (0-14)
--- NOTE | 2023-04-13 15:12 | XCELERA ---
[id number]
--- NOTE | 2023-04-13 16:29 | Discharge Summary ---
Discharge Summary Date of Service April 13, 2023 Notes For Next Care Provider 30 day cardiac event monitor being arranged Medication Changes From Visit None Admission HPI Per Admitting Provider Is an 82-year-old female with a history of hypertension, type 2 diabetes who presents to the hospital today on account of a syncopal episode. According to the patient she was walking from her sitting room to the kitchen when all of a sudden she passed out and dropped to the floor. She said she woke up right away and asked her partner to get her up. She did not feel any palpitations or chest pain or dizziness prior to falling down and she did not lose consciousness. In the emergency department blood pressure was elevated, CT scan of the head was done which did not show any acute pathology. Of note, she said this is the first time she is having this type of episode before. She will be admitted to the hospital for observation. Principal Dx & Hospital Course #1 = Principal Diagnosis (1) Syncope: Patient presents to the hospital following a possible syncopal episode. She reports walking briskly from her kitchen to the living room and then falling to the ground. She denies lightheadedness, chest pain, heart palpitations. She in fact doesn't even think she passed out. She is unsure if she tripped on anything. The event was unwitnessed but her heard the fall and came right out. She immediately asked for help to get up off the floor and was able to get right up. No injuries. reports she was slightly confused for a couple of minutes afterwards Orthostatic vital signs here negative No events on tele except NSR, normal rates EKG did not show any arrhythmias. ECHO normal Troponin serially negative x 2, CBC, CMP, TSH all normal CT head and CXR normal Possibly mechanical fall vs very brief syncope Advised stable to return home with 30 day property assessment monitor to be arranged DOing well (2) Hypertension, goal below 150/90: BPs mildly elevated here continue home metoprolol (3) Diet-controlled diabetes mellitus: Blood glucose under good control not on meds at home Plan Dispo-dc to home. Discussed care with at bedside Discharge Exam Constitutional WD/WN, vitals as above Eyes PERRL, conjunctivae normal, anicteric sclerae ENMT external ear and nose normal, oropharynx normal Neck trachea midline, no thyromegaly Respiratory normal respiratory effort, lungs clear to auscultation Cardiovascular RRR, no murmur, no edema Chest (Breasts) Chest: normal inspection of chest Gastrointestinal (Abdomen) normal bowel sounds, soft, nontender, no hepatosplenomegaly Musculoskeletal Extremities: extremities normal to inspection; no cyanosis and no clubbing Skin no rashes, warm and dry Neurologic moves all extremities and awake; no focal motor deficits Psychiatric A+Ox3, euthymic affect Lymphatic no lymphedema Updated Medication List Medication Instructions Recorded Confirmed Type cetirizine 10 mg tablet 10 mg PO DAILY PRN Allergy Symptoms 03/21/22 04/12/23 History esomeprazole magnesium 40 mg 40 mg PO QAM #90 caps 01/22/23 04/12/23 Rx capsule,delayed release metoprolol succinate 25 mg 25 mg PO BID #180 tabs 01/23/23 04/12/23 Rx tablet,extended release 24 hr cholecalciferol (vitamin D3) 50 4,000 unit PO DAILY #90 caps 03/20/23 04/12/23 Rx mcg (2,000 unit) capsule triamcinolone acetonide 0.1 % 1 applic topical DAILY PRN as 03/20/23 04/12/23 History topical cream directed naproxen 500 mg tablet 500 mg PO BID PRN Pain 04/12/23 04/12/23 History Hospital Stay Data Consultations 04/12/23 19:06 ED Decision to Admit Stat 04/13/23 16:22 Consult [facility] direct care worker Routine Diagnostic Imagining Performed 04/12/23 16:50 CT head/brain wo con Stat ECHO Pending Results Patient Have Any Pending Studies at Discharge: No Discharge Instructions Given to Patient (Per Discharging Provider) You were admitted after possibly passing out briefly with a fall. You had a CT scan of the head that did not show any stroke or bleeding. You had a workup of your heart which did not show any abnormalities. You had no abnormal heart rhythms on your heart monitor here. A heart monitor will be ordered for you at home to wear for 30 days to look for further for cardiac arrhythmias. Total Time Total Time Spent Total Time Spent (In Minutes): 35 min Coding Level of Care Code 34986 INP/OBS DISCH >30 MIN Diagnoses Syncope R55 Hypertension, goal below 150/90 I10 Diet-controlled diabetes mellitus E11.9
== END 2023-04-13 16:45 | disposition home or self-care (01) ==
LOC: ED 16:42 → 4W 16:42 → SUATTDRO 19:48 → 4W 21:48

== ENCOUNTER 2025-01-28 18:27 | Inpatient (IN) ==
[2025-01-28 18:58] LABS: Hematocrit (blood only) 37.6 % (37.0-47.0); Hemoglobin 12.5 g/dl (12.0-16.0); Immature Granulocytes # (auto) 0.07 K/uL (0.01-0.20); Immature Granulocytes % (auto) 0.5 %; Mean Corpuscular Hemoglobin 28.4 pg (25.0-34.0); Mean Corpuscular Volume 85.5 fL (80.0-100.0); Platelet Count 196 K/uL (130-400); RDW Standard Deviation 42.0 fL (36.4-46.3); Red Blood Count 4.40 M/uL (4.20-5.40); White Blood Count 13.82 K/ul (4.8-10.8)
--- NOTE | 2025-01-28 19:06 | Emergency Department Note ---
Impression & Plan Acute pyelonephritis, Bilateral leg weakness, Acute dehydration, Complicated urinary tract infection, Ambulatory dysfunction ED Provider Note NAME: KARRIE MCDONALD AGE: 84 SEX: F : 1940 ARRIVES VIA: Ambulance INFORMANT: Patient, EMS, daughter ED PROVIDER(S): Yazan Feldman DO CHIEF COMPLAINT: urinary symptoms, LE weakness HPI: This is an 84-year-old female with the PMHx of hypertension, lumbar spinal stenosis, GERD, and osteopenia presenting to [facility] for further evaluation of lower extremity weakness. Patient is accompanied by EMS who provide additional history. Pateint states this started over the weekend and has seemed to progress. She lives by herself. Her daughter states she was reluctant to come in. She states she feels similar to when she has had a UTI. She thinks her urinary incontinence is related to her urinary frequency. She has malaise and weakness. Notes L flank pain. They deny fever or chills. No cough or congestion. Denies chest pain or palpitations. No shortness of breath. They deny abdominal pain, nausea and vomiting. No urinary complaints. No recent changes in bowel movements. Patient denies recent changes in medications or OTC supplements. Patient offers no other complaints, today. ADDITIONAL HISTORY OBTAINED: Per HPI Chronic Medical/Social Conditions Affecting Care: Per HPI PAST MEDICAL HISTORY: See Below PAST SURGICAL HISTORY: See Below FAMILY HISTORY: See Below SOCIAL HISTORY: See Below HOME MEDICATIONS: See Below ALLERGIES: See Below VITALS: See Below PHYSICAL EXAMINATION: GENERAL: Sitting up in bed, alert, well appearing, well nourished, no distress, non-toxic EYE EXAM: normal conjunctiva. PERRL and EOM's grossly intact. OROPHARYNX: no exudate, no erythema, lips, buccal mucosa, and tongue normal and mucous membranes are moist NECK: supple, no nuchal rigidity, no adenopathy, non-tender LUNGS: Clear to auscultation. Normal chest wall mechanics HEART: no murmurs, tachycardic rate, regular rhythm ABDOMEN: abdomen soft, non-tender, no masses, no rebound or guarding. BACK: Back is symmetrical on inspection and there is no deformity, no midline tenderness, no CVA tenderness. 2+ DP pulses with warm and well perfused extremitites. 5/5 strength in lower extremities (5/5 EHL), 2/4 patellar reflexes, sensation intact SKIN: no rashes and no bruising UPPER EXTREMITIES: upper extremities are grossly normal. LOWER EXTREMITIES: No pitting edema. NEURO EXAM: Normal sensorium, GCS 15, normal speech, no gross weakness of arms, no gross weakness of legs. MEDICAL DECISION MAKING: Differential diagnoses includes but not limited to UTI, pyelonephritis, infected nephrolithiasis, renal abscess, spinal stenosis, cord compression, acute on chronic back pain, strain, muscle spasm, bacteremia, PNA, electrolyte derangements, dehydration In summary, this is a 84 year old female who presented with weakness and urinary incontinence. Differential as above. Nursing notes and pertinent past medical records reviewed. Vital signs reviewed and the patient is tachycardic but otherwise afebrile and HDS. History and presentation revealed chronic back pain and prior UTIs that have presented similarly. I reviewed prior urine culture that largely pansensitive Klebsiella. Physical examination revealed as above. I dont find evidence of cord compression. Feel her symptoms are related to chronic back pain but likely complicated by a UTI. I would also consider pyelonephritis. As a result of my initial evaluation, plan for labs and CTAP. Diagnostics interpreted by me include EKG and cardiac monitoring as listed below: -Cardiac Monitoring: An order was placed for continuous cardiac monitoring. The monitor shows a rate of 90-110 with regular rhythm. -ECG: EKG independently interpreted by me reveals normal sinus rhythm at a ventricular rate of [address] segment changes to suggest STEMI. Intervals are within normal limits. Patient completed laboratory studies and imaging. Results independently interpreted by me are minimal leukocytosis. No significant anemia. Does meet SIRS criteria with heart rate in the 90s as well as leukocytosis. Do not feel that she is septic at this time. Pending further characterization with further labs as well as CT imaging. The patient was managed with IVFR with 1L Plasmalyte. The patient does have mild hyponatremia that is likely pseudohyponatremia in the setting of hyperglycemia. Lactate is normal. Kidney function is normal. LFTs and lipase are normal. CT abdomen/pelvis independently interpreted by me reveals minimal left-sided hydronephrosis with thickening of the ureter and fat stranding surrounding the left kidney. Do believe this is likely an ascending infection and possible pyelonephritis. Urinalysis reports evidence of infection. Reviewed prior urine culture data that shows a pansensitive Klebsiella. Does have allergies to penicillins and levofloxacin but feels she should tolerate cephalosporins. IV ceftriaxone ordered. While the patient does meet SIRS criteria, the patient appears overall well and do not think she is bacteremic. Given concerns for possible acute pyelonephritis as well as ambulatory dysfunction with lower extremity weakness, patient will be admitted to the hospitalist service. Ultimately, the decision was made to admit the patient for acute pyelonephritis complicated by ambulatory dysfunction. I discussed the case with the hospitalist service via telephone/TigerText and they are agreeable to admit the patient to their services. Based on the above, including the patient's age, coexisting illnesses, labs, imaging, and exam findings the decision to treat as an inpatient. I discussed the patient with the hospitalist team who recommended admission to their services. They received the medications, treatments, interventions indicated above and their condition reamained stable. I discussed my findings with the patient and their family and they understand and agree with the treatment plan. All patient / family questions were answered to their satisfaction. Consults/Care Managements Discussions: Per MDM ER treatment provided: See above Procedures:none Critical Care: None The chart was completed utilizing [employer] Speech voice recognition software. Grammatical errors, random word insertions, pronoun errors, and incomplete sentences are an occasional consequence of this system due to software limitations, ambient noise, and hardware issues. Any formal questions or concerns about the content, text, or information contained within the body of this dictation should be directly addressed to the physician for clarification. Past Med/Surg History Problem List (Updated 01/31/25 @ 14:59 by Yazan Feldman DO) Ambulatory dysfunction (Acute) Complicated urinary tract infection (Acute) Acute dehydration (Acute) Bilateral leg weakness (Acute) Acute pyelonephritis (Acute) Essential hypertension Type 2 diabetes mellitus Hyponatremia UTI (urinary tract infection) Weakness Anxiety IT band syndrome Lumbar spinal stenosis Rash of both hands Vitamin D deficiency History of colon cancer (2017) Acid reflux (Chronic) Diet-controlled diabetes mellitus (Chronic) External hemorrhoids (Chronic) Hypertension, goal below 150/90 (Chronic) Internal hemorrhoids (Chronic) Osteopenia (Chronic) Medical History Hamstring strain Lumbar spinal stenosis Stomach ulcer hx ~at least 35 years ago, no current issues Surgical History Hx of colonoscopy S/P cataract surgery 2020, rt/lt History of colon resection (06/2015) @ [facility] d/t cancer pt states she only has 8-11 inches left of her colon History of tooth extraction History of dilation and curettage History of appendectomy ? pt states she is not sure if her appendix was removed during her hysterectomy S/P tonsillectomy S/P hysterectomy (~1975) ROBBY BSO Family History Father Diabetes Colorectal cancer Mother Diabetes Brother Hypertension Family history of diabetes mellitus Family hx colonic polyps Sister Family history of diabetes mellitus Other No family history of adverse response to anesthesia Denies family history of Ovarian cancer Prostate cancer Myocardial infarction Breast cancer Social History Smoking Status: Never smoker Second Hand Exposure: No; Do You Dip or Chew Tobacco: No; Hx Alcohol Use: No Hx Substance Use: No Preferred Language: Portuguese Communication Ability: Effective Visual Impairment: No Limitations Hearing Ability: Normal Dyed Raw Stock Blower Feeder Required: No Beliefs That Will Affect Care: None marital status: Current Living Situation: Spouse current occupational status: retired How many Children do You have: 3 Feels Safe at Home: Yes Childhood Exposure to Second-Hand Smoke: No Diet: regular Diet Comment: regular caffeine: Yes during the past year weight has: remained stable Dental Care, Regularly: Yes Physical Activity Frequency: Daily Physical Activity Frequency Comment: House work Seatbelt Use: always Sunscreen Use: Yes Assistive Devices: Cane Allergies Allergies Allergy/AdvReac Type Severity Reaction Status Date / Time Penicillins Allergy Intermediate SWELLING Verified 11/19/23 08:25 acetaminophen [From Tylenol] Allergy Mild Hives Verified 01/28/25 23:46 levofloxacin Allergy Mild ITCHING/GLEN Verified 11/19/23 08:25 H Home Meds Previous Rx's Medication Instructions Recorded cholecalciferol (vitamin D3) 50 4,000 unit PO DAILY #90 caps 03/20/23 mcg (2,000 unit) capsule metoprolol succinate 25 mg 25 mg PO BID #180 tabs 07/12/24 tablet,extended release 24 hr esomeprazole magnesium 40 mg 40 mg PO QAM #90 caps 05/12/25 capsule,delayed release Stair Lift #1 ea 10/07/24 cefpodoxime 200 mg tablet 200 mg PO BID 8 days #16 tabs 01/30/25 Results & Data (ED) Vital Signs Vital Signs - 24 hr 01/28/25 18:30 01/28/25 18:30 01/28/25 18:33 Temperature 37.1 C Temperature Source Oral Pulse Rate 100 H Respiratory Rate 22 Respiratory Effort / Characteristics Non-Labored Spontaneous Respiratory Depth Normal Respiratory Pattern Regular Blood Pressure 179/98 H Blood Pressure Mean 125 Pulse Oximetry 93 93 93 Oxygen Delivery Method Room Air Room Air Room Air Sepsis Recent Fever Within 48 Hours No Sepsis New/Unexplained Change in Mental Status N/A Sepsis Action Taken by Nursing No Action Required 01/28/25 18:43 Temperature Temperature Source Pulse Rate 98 H Respiratory Rate Respiratory Effort / Characteristics Respiratory Depth Respiratory Pattern Blood Pressure Blood Pressure Mean Pulse Oximetry Oxygen Delivery Method Sepsis Recent Fever Within 48 Hours Sepsis New/Unexplained Change in Mental Status Sepsis Action Taken by Nursing Laboratory Data 01/30/25 06:49 01/30/25 06:49 Lab Results 01/28/25 01/28/25 01/28/25 Range/Units 18:45 18:57 19:27 WBC 13.82 H (4.8-10.8) K/ul RBC 4.40 (4.20-5.40) M/uL Hgb 12.5 (12.0-16.0) g/dl Hct 37.6 (37.0-47.0) % MCV 85.5 (80.0-100.0) fL MCH 28.4 (25.0-34.0) pg MCHC 33.2 (32.0-36.0) g/dL RDW Std Deviation 42.0 (36.4-46.3) fL RDW Coeff of Srinivasa 13.5 (11.5-14.5) % Plt Count 196 (130-400) K/uL MPV 9.2 L (9.4-12.4) fL Immature Gran % (Auto) 0.5 % Neut % (Auto) 78.5 % Lymph % (Auto) 10.1 % [place] % (Auto) 10.4 % Eos % (Auto) 0.2 % Baso % (Auto) 0.3 % Neut # (Auto) 10.84 H (1.40-6.50) K/uL Lymph # (Auto) 1.40 (1.20-3.40) K/uL [place] # (Auto) 1.44 H (0.11-0.59) K/uL Eos # (Auto) 0.03 (0.00-0.50) K/uL Baso # (Auto) 0.04 (0.00-0.20) K/uL Immature Gran # (Auto) 0.07 (0.01-0.20) K/uL Sodium 135 L (136-145) mmol/L Potassium 3.9 (3.5-5.1) mmol/L Chloride 101 (98-107) mmol/L Carbon Dioxide 25 (21-32) mmol/L Anion Gap 9 (3-11) BUN 7 (6-23) mg/dl Creatinine 0.77 (0.6-1.2) mg/dl Est Cr Clr Drug Dosing 51.2 ml/min eGFR 75.08 BUN/Creatinine Ratio 9.1 L (10-20) Glucose 166 H (70-99(Fasting)) mg/dl Lactate 1.3 (0.4-2.0) mmol/L Calcium 9.2 (8.6-10.3) mg/dl Total Bilirubin 0.8 (0.2-1.0) mg/dl AST 18 (13-39) U/L ALT 22 (7-52) U/L Alkaline Phosphatase 73 (34-104) U/L Total Creatine Kinase 70 (26-192) U/L Total Protein 7.2 (6.0-8.3) gm/dl Albumin 3.9 (3.4-5.0) gm/dl Globulin 3.3 (2.5-4.0) gm/dl Albumin/Globulin Ratio 1.2 (0.9-2) Lipase 6 L (11-82) U/L Urine Color Yellow Urine Appearance Clear (Clear) Urine pH 6.0 (4.5-7.5) Ur Specific [place] 1.010 (1.000-1.030) Urine Protein 1+ H (Negative) Urine Glucose (UA) Negative (Negative) Urine Ketones Negative (Negative) Urine Blood 1+ H (Negative) Urine Nitrite Positive A (Negative) Urine Bilirubin Negative (Negative) Urine Urobilinogen Negative (Negative) Ur Leukocyte Esterase 2+ H (Negative) Urine WBC (Auto) >50 H (0-5) /hpf Urine RBC (Auto) 3-5 H (0-2) /hpf U Hyaline Cast (Auto) 0-2 (0-2) /lpf U Epithel Cells (Auto) 0-2 (0-2) /hpf Urine Bacteria (Auto) 4+ H (None Seen) Urine Comment Administered Medications Discontinued Medications Celecoxib (Celecoxib 100 Mg Cap) 100 mg PO NOW STA Stop: 01/29/25 00:12 Last Admin: 01/29/25 00:38 Dose: 100 mg Documented By: NEELAM Celecoxib (Celecoxib 100 Mg Cap) 100 mg PO BID PRN PRN Reason: Fever/Pain Stop: 02/28/25 08:59 Last Admin: 01/29/25 08:44 Dose: 100 mg Documented By: DERREK Parenteral Electrolytes (Plasma-Lyte A Ph 7.4) 1,000 mls @ 999 mls/hr IV .[id number] ONE Stop: 01/28/25 19:33 Last Infusion: 01/28/25 20:30 Dose: Infused Documented By: Admin: 01/28/25 19:26 Dose: 999 mls/hr Documented By: EMBER Ceftriaxone Sodium (Rocephin) 1,000 mg in 50 mls @ 100 mls/hr IV NOW STA Stop: 01/28/25 20:50 Last Infusion: 01/28/25 23:09 Dose: Infused Documented By: Admin: 01/28/25 21:58 Dose: 100 mls/hr Documented By: EMBER Parenteral Electrolytes (Plasma-Lyte A Ph 7.4) 1,000 mls @ 80 mls/hr IV .[id number] CEZAR Stop: 01/29/25 03:44 Last Infusion: 01/29/25 05:52 Dose: Infused Documented By: Infusion: 01/29/25 04:09 Dose: 0 mls/hr Documented By: Admin: 01/28/25 22:00 Dose: 80 mls/hr Documented By: EMBER Ceftriaxone Sodium (Rocephin) 2,000 mg in 50 mls @ 100 mls/hr IV Q24H CEZAR Stop: 02/02/25 23:44 Last Admin: 01/29/25 00:51 Dose: Not Given Documented By: NEELAM Ceftriaxone Sodium (Rocephin) 2,000 mg in 50 mls @ 100 mls/hr IV Q24H CEZAR Stop: 02/03/25 20:59 Last Infusion: 01/29/25 21:15 Dose: Infused Documented By: Admin: 01/29/25 20:25 Dose: 100 mls/hr Documented By: NEELAM Ceftriaxone Sodium (Rocephin) 1,000 mg in 50 mls @ 100 mls/hr IV NOW STA Stop: 01/29/25 00:16 Last Infusion: 01/29/25 01:01 Dose: Infused Documented By: Admin: 01/29/25 00:28 Dose: 100 mls/hr Documented By: NEELAM Insulin Aspart (Insulin Aspart Per Unit Charge) 0 units SC ACHS CEZAR Stop: 02/28/25 07:44 Last Admin: 01/30/25 08:59 Dose: 5 units Documented By: MELANY Co-signed By: SAGAR Admin: 01/29/25 20:34 Dose: Not Given Documented By: Admin: 01/29/25 17:33 Dose: Not Given Documented By: Admin: 01/29/25 12:41 Dose: 7 units Documented By: DERREK Co-signed By: VGS Admin: 01/29/25 07:56 Dose: Not Given Documented By: DERREK Ioversol (Optiray 320 100ml) 90 ml IV ONCE ONE Stop: 01/28/25 19:56 Last Admin: 01/28/25 19:56 Dose: 90 ml Documented By: ROBERTA Metoprolol Succinate (Metoprolol Succ 25mg Ext Rel Tab) 25 mg PO BID CEZAR Stop: 02/28/25 08:59 Last Admin: 01/30/25 08:11 Dose: 25 mg Documented By: Admin: 01/29/25 20:27 Dose: 25 mg Documented By: Admin: 01/29/25 08:45 Dose: 25 mg Documented By: DERREK Pantoprazole Sodium (Pantoprazole 40 Mg Tab) 40 mg PO QAM CEZAR Stop: 02/28/25 08:59 Last Admin: 01/30/25 08:11 Dose: 40 mg Documented By: Admin: 01/29/25 07:18 Dose: 40 mg Documented By: DERREK Simethicone (Simethicone 80 Mg Chew) 80 mg PO Q6H PRN PRN Reason: Flatulence Stop: 02/28/25 20:55 Last Admin: 01/29/25 22:12 Dose: 80 mg Documented By: NEELAM Vitamin D (Cholecalciferol 25 Mcg (1000 Units) Tab) 100 mcg PO DAILY CEZAR Stop: 02/28/25 08:59 Last Admin: 01/30/25 08:11 Dose: 100 mcg Documented By: Admin: 01/29/25 08:44 Dose: 100 mcg Documented By: DERREK Discharge Plan Visit Data Chief Complaint: Weakness ED Provider: Yazan Feldman Discharge Problem: Acute pyelonephritis, Bilateral leg weakness, Acute dehydration, Complicated urinary tract infection, Ambulatory dysfunction Patient Disposition: Admitted As Inpatient Condition: Serious Discharge Instructions Interventions: ED Discharge Assessment Last Done: 01/28/25 23:10
[2025-01-28 19:16] LABS: Alanine Aminotransferase 22.0 U/L (7-52); Albumin Globulin Ratio 1.2 (0.9-2); Alkaline Phosphatase 73.0 U/L (34-104); Anion Gap 9.0 (3-11); Bilirubin,Total 0.8 mg/dl (0.2-1.0); Blood Urea Nitrogen 7.0 mg/dl (6-23); Calcium 9.2 mg/dl (8.6-10.3); Carbon Dioxide 25.0 mmol/L (21-32); Chloride 101.0 mmol/L (98-107); Creatinine Clr Calc Pharmacy 51.2 ml/min; Globulin 3.3 gm/dl (2.5-4.0); Glucose 166.0 mg/dl (70-99(Fasting)); Lipase 6.0 U/L (11-82); Potassium 3.9 mmol/L (3.5-5.1); Sodium 135.0 mmol/L (136-145); Total Protein 7.2 gm/dl (6.0-8.3)
[2025-01-28] MEDS: PLASMA-LYTE A 1,000 ML IV ONE (19:26)
[2025-01-28] MEDS: OPTIRAY 320 100ml IV ONE (19:56)
[2025-01-28 20:13] LABS: Appearance Urine Clear (Clear); Bacteria Urine Automated 4+ (None Seen); Cast Urine Automated 0-2 /lpf (0-2); Epithelial Cell Urine Auto 0-2 /hpf (0-2); Glucose Urine UA Negative (Negative); WBC Urine Automated >50 /hpf (0-5)
--- NOTE | 2025-01-28 20:37 | History & Physical Report ---
Date of Service January 28, 2025 Assessment & Plan (1) Weakness: (2) UTI (urinary tract infection): (3) Hyponatremia: Plan 84-year-old female PMHx HTN, T2 DM, osteopenia, GERD, vitamin D deficiency, history of colon cancer s/p colectomy, and knee osteoarthritis presenting for bilateral leg weakness with urinary incontinence starting at 1800 today prior to arrival. Her workup is suspicious for infection with the evidence of leukocytosis and UA revaling infection. Her CTAP is pending offcial read. Not septic and other findings grossly WNL. Admission for weakness, likely 2/2 presence of UTI/? pyelonephritis. #UTI/Weakness Symptoms of urinary incontinence with bilateral leg weakness and pain with ambulation. Does have history of IT band syndrome as well as lumbar spinal stenosis. 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 No prior history of Pseudomonas on urine cultures. Suspect the weakness is secondary to presence of infection. She is not septic at time of admission. - CBC leukocytosis 13.82, stable H&H; CMP with slightly decreased sodium 135, normal renal function; lactate 1.3 - CBC am - CK pending - UA reveals infection; pending culture - EKG NSR - CTAP pending official read - Fall precautions - IVF Plasma-Lye 80 mL/hr - Zofran prn N/V - Acetaminophen prn fever/pain - Ceftriaxone IV - Consider PT/OT if no improvement of symptoms following tx of infection #Hyponatremia In setting of elevated glucose, appears falsely low. - Na 135, glucose 166; Corrected Na 137 - BMP am - Gentle IVF as above #T2DM H/o DMT2; Diet controlled. - Glucose on arrival 166; Most recent A1C 09/2024 @ 7.7% - Deferred SSI at time of admission - T2DM diet and BSG daily - Adjust regimen as needed #HTN- Metoprolol - continue #GERD- Esomeprazole - continue #Vitamin D deficiency- Vitamin D3 daily - continue #H/o colon cancer s/p colectomy - No longer follows with colo-rectal; stable Dispo: Admit, med/sx VTE Prophylaxis: SCDs This document was dictated utilizing [employer]. Please excuse any grammatical errors that may be secondary to use of this software. Admission and Anticipated Discharge Date Admission Date: 01/28/2025 History of Present Illness Chief Complaint: Weakness Primary Care Provider: Jannette Mcgrath DO 84-year-old female PMHx HTN, T2 DM, osteopenia, GERD, vitamin D deficiency, history of colon cancer s/p colectomy, and knee osteoarthritis presenting for bilateral leg weakness with urinary incontinence starting at 1800 today prior to arrival. She is having increased pain in her legs when ambulating. The day IMAGE EDITOR around 1430 she has L sided low back/flank pain and felt that her legs were weak. She states that she did not feel that she could walk because she had this weakness. She does note to wearing a pad at all times, and noticed that throughout the night there was more urine in it and she was getting up to urinate much more frequently than before. She took 2 Advil prior to sleeping the night IMAGE EDITOR. She did have control over her bladder but into the day of arrival felt that she could not hold it long enough to get to the bathroom. On the day of arrival, she admits to more frequency as well as returning L sided flank pain that is sharp and constant in nature. At its worst, she rates the pain a 5/10 on the pain scale. She has no pain at present. Denies additional LUTS. No F/C. She admits that a few days ago she slid off her ottoman and laid on the ground for a few moments before having the strength to get herself back up, but did not hit anything or pass out. No pain or muscle pain otherwise. She denies additional falls. Has not eaten much today and states she normally does not like to drink a lot of water, she usually prefers coffee with vanilla creamer. She jokes that she does not like pumpkin spice flavored coffee. She always gets nervous when at a medical facility, stating her BP and heart rate tend to jump up when she is in this environment. No chest pain, SOB, palpitations, headache, abdominal pain, N/V/D/C, numbness/tingling, F/C, URI symptoms, or syncope. She took all of her evening medications. ED evaluation revealed CBC with leukocytosis 13.82; CMP sodium 135, BUN/creatinine ratio 9.1, glucose 116; lactate 1.3; lipase 6; UA positive for infection; CTAP pending official read; EKG NSR with nonspecific ST abnormality at 90 bpm.; Provided with Plasma-Lyte 1L and ceftriaxone 1 g IV in ED. Please see Dr. Hawkins's attestation for adjustments/additions to treatment plan. Allergies Allergy/AdvReac Type Severity Reaction Status Date / Time Penicillins Allergy Intermediate SWELLING Verified 11/19/23 08:25 levofloxacin Allergy Mild ITCHING/GLEN Verified 11/19/23 08:25 H Home Medications Medication Instructions Recorded Confirmed Type cholecalciferol (vitamin D3) 50 4,000 unit PO DAILY #90 caps 03/20/23 01/28/25 Rx mcg (2,000 unit) capsule metoprolol succinate 25 mg 25 mg PO BID #180 tabs 07/12/24 01/28/25 Rx tablet,extended release 24 hr esomeprazole magnesium 40 mg 40 mg PO QAM #90 caps 10/03/24 01/28/25 Rx capsule,delayed release Stair Lift #1 ea 10/07/24 10/07/24 Rx Past Med/Surg History Problem List (Updated 01/28/25 @ 20:39 by Trace Fuentes PA-C) Hyponatremia UTI (urinary tract infection) Weakness Anxiety IT band syndrome Lumbar spinal stenosis Rash of both hands Vitamin D deficiency History of colon cancer (2016) Acid reflux (Chronic) Diet-controlled diabetes mellitus (Chronic) External hemorrhoids (Chronic) Hypertension, goal below 150/90 (Chronic) Internal hemorrhoids (Chronic) Osteopenia (Chronic) Medical History Hamstring strain Lumbar spinal stenosis Stomach ulcer hx ~at least 35 years ago, no current issues Surgical History Hx of colonoscopy S/P cataract surgery 2020, rt/lt History of colon resection (06/2015) @ [facility] [place] d/t cancer pt states she only has 8-11 inches left of her colon History of tooth extraction History of dilation and curettage History of appendectomy ? pt states she is not sure if her appendix was removed during her hys terectomy S/P tonsillectomy S/P hysterectomy (~1975) ROBBY BSO Family History Father Diabetes Colorectal cancer Mother Diabetes Brother Hypertension Family history of diabetes mellitus Family hx colonic polyps Sister Family history of diabetes mellitus Other No family history of adverse response to anesthesia Denies family history of Ovarian cancer Prostate cancer Myocardial infarction Breast cancer Social History Smoking Status: Never smoker Second Hand Exposure: No; Do You Dip or Chew Tobacco: No; Hx Alcohol Use: No Hx Substance Use: No Preferred Language: Nepali Communication Ability: Effective Visual Impairment: No Limitations Hearing Ability: Normal Supervisor [employer] Required: No Beliefs That Will Affect Care: None marital status: Current Living Situation: Spouse current occupational status: retired How many Children do You have: 3 Feels Safe at Home: Yes Childhood Exposure to Second-Hand Smoke: No Diet: regular Diet Comment: regular caffeine: Yes during the past year weight has: remained stable Dental Care, Regularly: Yes Physical Activity Frequency: Daily Physical Activity Frequency Comment: House work Seatbelt Use: always Sunscreen Use: Yes Assistive Devices: Denture - Upper and Glasses Review of Systems Review of Systems: All systems reviewed & are unremarkable except as noted in Subjective Physical Exam Physical Exam: General: No acute distress Skin: Warm and dry Head: Normocephalic, atraumatic Eyes: PERRL, conjunctivae clear, sclera non-icteric; wearing glasses ENT: External ear and ear canal without swelling; nose atraumatic; good dentition, tongue normal appearance, pharynx normal Neck: Supple, no LAD Cardio: RRR, no M/G/R, S1 and S2 normal Resp: No respiratory distress, Lungs CTA in all lobes bilaterally, no wheezes, rales, or rhonchi Abdomen: Soft, symmetric, nontender; No masses or hepatosplenomegaly; Bowel sounds normoactive MSK: No deformities; pulses palpable and equal; trace pitting edema BLE to knee. Neuro: Awake, alert; Sensation intact bilaterally; CN grossly intact; BLE reflexes WNL, strength BLE 4/5, equal Psych: Appropriate mood and affect; good judgement and insight. Daughter is present in room at time of visit. Results & Data Results & Data Vital Signs (Past 12 Hours) Vital Signs Temp Pulse Resp BP Pulse Ox O2 Del Method 01/28/25 18:43 98 H 01/28/25 18:33 93 Room Air 01/28/25 18:30 93 Room Air 01/28/25 18:30 37.1 C 100 H 22 179/98 H 93 Room Air Laboratory Results 01/28/25 19:27 Urine Culture - Pending Urine,Clean Catch 01/28/25 01/28/25 01/28/25 19:27 18:57 18:45 WBC 13.82 H RBC 4.40 Hgb 12.5 Hct 37.6 MCV 85.5 MCH 28.4 MCHC 33.2 RDW Std Deviation 42.0 RDW Coeff of Srinivasa 13.5 Plt Count 196 MPV 9.2 L Immature Gran % (Auto) 0.5 Neut % (Auto) 78.5 Lymph % (Auto) 10.1 Schleicher % (Auto) 10.4 Eos % (Auto) 0.2 Baso % (Auto) 0.3 Neut # (Auto) 10.84 H Lymph # (Auto) 1.40 Schleicher # (Auto) 1.44 H Eos # (Auto) 0.03 Baso # (Auto) 0.04 Immature Gran # (Auto) 0.07 Sodium 135 L Potassium 3.9 Chloride 101 Carbon Dioxide 25 Anion Gap 9 BUN 7 Creatinine 0.77 Est Cr Clr Drug Dosing 51.2 eGFR 75.08 BUN/Creatinine Ratio 9.1 L Glucose 166 H Lactate 1.3 Calcium 9.2 Total Bilirubin 0.8 AST 18 ALT 22 Alkaline Phosphatase 73 Total Protein 7.2 Albumin 3.9 Globulin 3.3 Albumin/Globulin Ratio 1.2 Lipase 6 L Urine Color Yellow Urine Appearance Clear Urine pH 6.0 Ur Specific [place] 1.010 Urine Protein 1+ H Urine Glucose (UA) Negative Urine Ketones Negative Urine Blood 1+ H Urine Nitrite Positive A Urine Bilirubin Negative Urine Urobilinogen Negative Ur Leukocyte Esterase 2+ H Urine WBC (Auto) >50 H Urine RBC (Auto) 3-5 H U Hyaline Cast (Auto) 0-2 U Epithel Cells (Auto) 0-2 Urine Bacteria (Auto) 4+ H Urine Comment Medications Administered Plasma-Lyte 1L Ceftriaxone 1 g IV ECG Additional Comments: NSR, nonspecific ST abnormality 90 bpm, DE 140, QRS 74, QT/QTc 334/408, PRT 54/3/2 Code Status & VTE Plan Code Status Full Supervising Physician Co-Signing Physician Notes Patient seen and examined, chart reviewed, case discussed with FLORENCE Fuentes and I agree with the assessment and plan as above. In brief, patient is an 84yo female presenting with bilateral LE weakness and urinary incontinence. Workup with UA suggestive of infection CT Abdomen/Pelvis performed and pending formal read On exam she is afebrile, hypertensive on arrival Non-toxic in appearance Skin without rash MMM, Neck supple +S1/S2, regular, no m/r/g Lungs CTA, no rales/rhonchi/wheezes Abd - soft, NT/ND Labs and images reviewed Assessment/Plan -Treatment of UTI with Ceftriaxone, IVF -Tylenol and Zofran PRN -If no improvement or continued weakness would pursue additional imaging of lumbar spine -Remainder as above PG Care Time/CCT Total # of Minutes Spent Total Time Spent with Patient: Total time spent is greater than 50% in coordination of care (as documented) at patient's floor/unit and/or counseling patient: Coding Level of Care Code 99194 INT INP/OBS CARE 3/75MIN Diagnoses Weakness R53.1 UTI (urinary tract infection) N39.0 Hyponatremia E87.1
[2025-01-28 21:38] LABS: Creatine Kinase 70.0 U/L (26-192)
[2025-01-28] MEDS: cefTRIAXone SODIUM 1,000 MG/50 ML BAG IV STA (21:58)
[2025-01-28] MEDS: PLASMA-LYTE A 1,000 ML IV SCH (22:00)
--- NOTE | 2025-01-28 23:09 | CT Scan Report ---
Exam(s): CT ABDOMEN + PELVIS With Contrast IV Amt: 90 ml optiray 320 EXAM: CT Abdomen and Pelvis With Intravenous Contrast CLINICAL HISTORY: Reason for exam: LE weakness, L hip/back pain, urinary symptoms. TECHNIQUE: Axial computed tomography images of the abdomen and pelvis with intravenous contrast. CTDI is 22.37 mGy and DLP is 1076.87 mGy-cm. Automated exposure control was utilized for the study. A dose lowering technique was utilized adhering to the principles of ALARA. CONTRAST: Patient received 90 ml optiray 320 of IV contrast COMPARISON: 11/22/2022 FINDINGS: ABDOMEN: Liver: Unremarkable. Gallbladder and bile ducts: Unremarkable. Pancreas: Unremarkable. Spleen: Unremarkable. Adrenals: Unremarkable. Kidneys and ureters: Patchy enhancement of the left kidney consistent with acute pyelonephritis. Urothelial thickening in the left ureter. No obstructing stone or hydronephrosis. Normal enhancement of the right kidney. No perinephric abscess. Stomach and bowel: Unremarkable. PELVIS: Appendix: No findings to suggest acute appendicitis. Bladder: Unremarkable. Reproductive: Status post hysterectomy. ABDOMEN and PELVIS: Intraperitoneal space: Unremarkable. No free air. No significant fluid collection. Bones/joints: Severe degenerative changes in the left hip. Scoliosis and multilevel degenerative changes in the spine. Soft tissues: Unremarkable. Vasculature: Unremarkable. Lymph nodes: Unremarkable. IMPRESSION: Patchy enhancement of the left kidney consistent with acute pyelonephritis. Electronically signed by: Carson Martinez MD 01/28/25 23:08 PM
[2025-01-28] MEDS ORDERED: ONDANSETRON INJ 2 MG/ML 2 ML VIAL IV PRN (23:42)
[2025-01-28] MEDS ORDERED: ACETAMINOPHEN 325 MG TAB PO PRN (23:42)
[2025-01-28] MEDS ORDERED: MELATONIN 3 MG TAB PO PRN (23:42)
[2025-01-28] MEDS ORDERED: POLYETHYLENE (MIRALAX) 17 GM PACK PO PRN (23:42)
[2025-01-28] MEDS ORDERED: MAGNESIUM HYDROXIDE SUSP 30 ML UDC PO PRN (23:42)
[2025-01-29] MEDS: cefTRIAXone SODIUM 1,000 MG/50 ML BAG IV STA (00:28)
[2025-01-29] MEDS: CELECOXIB 100 MG CAP PO STA (00:38)
[2025-01-29] MEDS: cefTRIAXone SODIUM 2,000 MG/50 ML BAG IV SCH ×2 (00:51→20:25)
[2025-01-29] MEDS ORDERED: CARBOHYDRATES FOR HYPOGLYCEMIA PO PRN (07:34)
[2025-01-29] MEDS ORDERED: GLUCAGON FOR INJ 1 MG VIAL SQ PRN (07:34)
[2025-01-29] MEDS ORDERED: GLUCOSE 40% GEL 15 GM TUBE PO PRN (07:34)
[2025-01-29] MEDS ORDERED: GLUCOSE 10 TAB/TUBE PO PRN (07:34)
[2025-01-29] MEDS ORDERED: DEXTROSE 50% 50 ML SYRINGE IV PRN (07:34)
[2025-01-29] MEDS: INSULIN ASPART PER UNIT CHARGE SC SCH (07:56)
[2025-01-29] MEDS: CELECOXIB 100 MG CAP PO PRN (08:44)
[2025-01-29] MEDS: CHOLECALCIFEROL 25 MCG (1000 UNITS) TAB PO SCH (08:44)
[2025-01-29] MEDS: METOPROLOL SUCC 25MG EXT REL TAB PO SCH (08:45)
[2025-01-29 09:49] LABS: Hematocrit (blood only) 36.1 % (37.0-47.0); Hemoglobin 12.1 g/dl (12.0-16.0); Immature Granulocytes # (auto) 0.05 K/uL (0.01-0.20); Immature Granulocytes % (auto) 0.4 %; Mean Corpuscular Hemoglobin 28.7 pg (25.0-34.0); Mean Corpuscular Volume 85.7 fL (80.0-100.0); Platelet Count 189 K/uL (130-400); RDW Standard Deviation 42.2 fL (36.4-46.3); Red Blood Count 4.21 M/uL (4.20-5.40); White Blood Count 12.10 K/ul (4.8-10.8)
[2025-01-29 10:06] LABS: Anion Gap 9.0 (3-11); Blood Urea Nitrogen 5.0 mg/dl (6-23); Calcium 9.0 mg/dl (8.6-10.3); Carbon Dioxide 28.0 mmol/L (21-32); Chloride 101.0 mmol/L (98-107); Creatinine Clr Calc Pharmacy 51.9 ml/min; Glucose 231.0 mg/dl (70-99(Fasting)); Potassium 3.8 mmol/L (3.5-5.1); Sodium 138.0 mmol/L (136-145)
--- NOTE | 2025-01-29 10:43 | Electrocardiogram Report ---
Test Reason : Blood Pressure : */* mmHG Vent. Rate : 90 BPM Atrial Rate : 90 BPM P-R Int : 140 ms QRS Dur : 74 ms QT Int : 334 ms P-R-T Axes : 54 3 2 degrees QTcB Int : 408 ms Normal sinus rhythm Nonspecific ST abnormality Abnormal ECG When compared with ECG of 12-Apr-2023 17:08, No significant change was found Confirmed by Bennett Cota ([id number]) on 01/29/2025 10:42:59 AM Referred By: REFERRED SELF Confirmed By: Bennett Cota
--- NOTE | 2025-01-29 13:19 | Hospitalist Progress Note ---
Date of Service January 29, 2025 Assessment & Plan (1) Weakness: Plan: Present on admission. Now resolved. Continue to treat underlying UTI (2) UTI (urinary tract infection): Plan: Rocephin day 2. Urine culture results remain pending (3) Hyponatremia: Plan: Very mild on admission. No intervention necessary (4) Type 2 diabetes mellitus: Plan: ADA diet. Sliding scale coverage (5) Essential hypertension: Plan: Stable. Continue current medical management Plan Hopeful discharge to home tomorrow, 01/30, on an oral antibiotic, January 30 Admission and Anticipated Discharge Date Admission Date: January 28, 2025 Subjective Alert and oriented. Afebrile. Rocephin day 2. She states she is feeling better. Urine cultures results remain pending. OT and PT assessments requested. Hopefully she can go home on an oral antibiotic tomorrow, January 30 Review of Systems 2 Review of Systems: Constitutionalno fever or chills ENTno blurred vision, no double vision, no epistaxis, no sore throat Respiratoryno cough, no wheezing, no shortness of breath Cardiacno palpitations, no chest pain, no syncope [place] nausea, vomiting, diarrhea, melena, hematochezia GUno urinary retention, no urinary incontinence, no dysuria, no hematuria Musculoskeletalno joint pain, no muscle tenderness Skinno bruising, no rashes, no pruritus Neurono isolated weakness, no paresthesia, no weakness Psychno depression, no anxiety Physical Exam 2 Physical Exam: General-alert and oriented x3, no fever, no chills HEENT-head atraumatic and normocephalic, pupils equal and reactive to light, extraocular muscles intact Neck-no lymphadenopathy or thyromegaly, trachea midline Chest-clear to auscultation. No rales, wheezing or rhonchi Cardiac-regular rate and rhythm, normal S1 and S2 Abdomen-normal bowel sounds, no hepatosplenomegaly Extremities-no cyanosis, clubbing, or edema Neuro-cranial nerves II through XII intact, motor and sensory function within normal limits, strength symmetrical, no focal deficits Psych-normal affect, normal mood Results & Data Results & Data Vital Signs (Past 12 Hours) Vital Signs Temp Pulse Resp BP Pulse Ox O2 Del Method 01/29/25 07:16 37.6 C H 79 16 152/83 H 94 Room Air Laboratory Results 01/29/25 09:36 01/29/25 09:36 PG Care Time/CCT Total # of Minutes Spent Total Time Spent with Patient: Total time spent is greater than 50% in coordination of care (as documented) at patient's floor/unit and/or counseling patient: Coding Level of Care Code 79219 SUB INP/OBS CARE 2/35MIN Diagnoses Weakness R53.1 UTI (urinary tract infection) N39.0 Hyponatremia E87.1 Type 2 diabetes mellitus E11.9 Essential hypertension I10
[2025-01-29] MEDS: SIMETHICONE 80 MG CHEW PO PRN (22:12)
[2025-01-30 07:11] VITALS: BP 125/78; PULSE 73; RESP 18; TEMP 98.2; O2SAT 93
[2025-01-30 07:21] LABS: Hematocrit (blood only) 34.8 % (37.0-47.0); Hemoglobin 11.5 g/dl (12.0-16.0); Immature Granulocytes # (auto) 0.04 K/uL (0.01-0.20); Immature Granulocytes % (auto) 0.5 %; Mean Corpuscular Hemoglobin 28.5 pg (25.0-34.0); Mean Corpuscular Volume 86.1 fL (80.0-100.0); Platelet Count 203 K/uL (130-400); RDW Standard Deviation 42.4 fL (36.4-46.3); Red Blood Count 4.04 M/uL (4.20-5.40); White Blood Count 8.17 K/ul (4.8-10.8)
[2025-01-30 07:44] LABS: Anion Gap 6.0 (3-11); Blood Urea Nitrogen 10.0 mg/dl (6-23); Calcium 8.6 mg/dl (8.6-10.3); Carbon Dioxide 28.0 mmol/L (21-32); Chloride 103.0 mmol/L (98-107); Creatinine Clr Calc Pharmacy 50.6 ml/min; Glucose 147.0 mg/dl (70-99(Fasting)); Potassium 3.6 mmol/L (3.5-5.1); Sodium 137.0 mmol/L (136-145)
--- NOTE | 2025-01-30 10:14 | Discharge Summary ---
"Discharge Summary Date of Service January 30, 2025 Principal Dx & Hospital Course #1 = Principal Diagnosis (1) Weakness: (2) UTI (urinary tract infection): (3) Hyponatremia: (4) Type 2 diabetes mellitus: (5) Essential hypertension: Plan #UTI | Weakness Ebony is an 84F who presented with weakness and back pain. CT a/p concern for pyelo. UA concerning for infection. Responded well to Ceftriaxone. UC: Ecoli, sensitivities pending. PT/OT cleared for home. Will discharge with extended course of cefpodoximine for pyelo. #hyponatremia - mild on admission, resolved. #DMT2 diet controlled, mild elevations and started on ACHS checks and insulin while here. No A1c completed. Recommend outpatient follow up for decision if PO option should be initated. #HTN - continue metoprolol Dispo: Discharge to home today Admission HPI Per Admitting Provider 84-year-old female PMHx HTN, T2 DM, osteopenia, GERD, vitamin D deficiency, history of colon cancer s/p colectomy, and knee osteoarthritis presenting for bilateral leg weakness with urinary incontinence starting at 1800 today prior to arrival. She is having increased pain in her legs when ambulating. The day [employer] around 1430 she has L sided low back/flank pain and felt that her legs were weak. She states that she did not feel that she could walk because she had this weakness. She does note to wearing a pad at all times, and noticed that throughout the night there was more urine in it and she was getting up to urinate much more frequently than before. She took 2 Advil prior to sleeping the night [employer]. She did have control over her bladder but into the day of arrival felt that she could not hold it long enough to get to the bathroom. On the day of arrival, she admits to more frequency as well as returning L sided flank pain that is sharp and constant in nature. At its worst, she rates the pain a 5/10 on the pain scale. She has no pain at present. Denies additional LUTS. No F/C. She admits that a few days ago she slid off her ottoman and laid on the ground for a few moments before having the strength to get herself back up, but did not hit anything or pass out. No pain or muscle pain otherwise. She denies additional falls. Has not eaten much today and states she normally does not like to drink a lot of water, she usually prefers coffee with vanilla creamer. She jokes that she does not like pumpkin spice flavored coffee. She always gets nervous when at a medical facility, stating her BP and heart rate tend to jump up when she is in this environment. No chest pain, SOB, palpitations, headache, abdominal pain, N/V/D/C, numbness/tingling, F/C, URI symptoms, or syncope. She took all of her evening medications. ED evaluation revealed CBC with leukocytosis 13.82; CMP sodium 135, BUN/creatinine ratio 9.1, glucose 116; lactate 1.3; lipase 6; UA positive for infection; CTAP pending official read; EKG NSR with nonspecific ST abnormality at 90 bpm.; Provided with Plasma-Lyte 1L and ceftriaxone 1 g IV in ED. Please see Dr. Hawkins's attestation for adjustments/additions to treatment plan. Discharge Exam General: NAD, VS as above Resp: normal respiratory effort, lungs clear to auscultation CV: RRR, no murmur, Back: no CVA tenderness Abd: normal bowel sounds, non tender, Neuro: A&O x3, Discharge Plan Discharge Items Patient Disposition: Home - Self-Care Reason For Visit: UTI, ? PYELO, WEAK Discharge Diagnosis: Pyelonephritis Activity: Resume your previous activity Driving/Machine Use: No limitations Weightbearing: Full weightbearing Non-emergency contact: Primary Care Provider Call non-emergency contact if: you have any medication questions, your symptoms worsen and your temperature is above 101 Follow-up/Referrals: Jannette Mcgrath, [Primary Care Provider] - (Follow up within one week ) Diet: Carb Consistent or DM2 Addtl Attending Provider Instructions: Ms. Segal, You were hospitalized after having back pain and weakness found to be from a urine/kidney infection. You were treated with IV antibiotics and improved greatly. You will be discharged on oral antibiotics, cefpodoxime, take the first dose PM 9/8. You had some mildly elevated blood sugars, we did not check an A1c. Please follow up with your PCP for further management of your diabetes. Activity: You can do normal everyday activities as your body allows. Take rest breaks if you feel tired. Do not overexert. Stop activity if you have pain, shortness of breath or feel dizzy. Follow-up appointments: Make an appointment with your primary care physician within one week of discharge. A copy of this summary will be sent to them. Every time you see your primary care physician, or any other doctor, bring your medication list, and a list of questions. CONTACT YOUR PRIMARY CARE PROVIDER if you experience any of the following: Shortness of breath or difficulty breathing Fevers or chills Feeling tired with normal activity or experiencing dizziness or fainting Difficulty following your treatment plan, or difficulty taking medications CALL 911 OR GO TO THE EMERGENCY DEPARTMENT if you experience any of the following: Severe abdominal pain or nausea/vomiting Severe chest pain, or chest pain that radiates (moves) to your jaw or arm Sudden, severe shortness of breath or difficulty breathing Thank you for allowing us to participate in your care. Pending Studies at Discharge: Yes (urine culture sensitivities ) Stand-Alone Forms: My [facility], Smoking Cessation Medications and DC Order Prescriptions: New cefpodoxime 200 mg tablet 200 mg PO BID 8 Days Qty: 16 0RF Rx Instructions: must administer with a meal/food Continued metoprolol succinate 25 mg tablet extended release 24 hr 25 mg PO BID Qty: 180 2RF esomeprazole magnesium 40 mg capsule,delayed release(DR/EC) 40 mg PO QAM Qty: 90 1RF cholecalciferol (vitamin D3) 50 mcg (2,000 unit) capsule 4,000 unit PO DAILY Qty: 90 3RF (DME) Stair Lift See Rx Instructions .Route .MEDSUPPLY Qty: 1 0RF Rx Instructions: As directed Discharge Orders: Discharge Order (Routine); Ordered 01/30/25 Ordered By: Indira Montana/Other Patient Handouts: Urinary Tract Infections in Women Admission Data Admit Date/Time: 01/28/25 21:09 Attending Provider: Ritika Hunter Admit Provider: Sheila Hawkins Primary Care Provider: Jannette Mcgrath. Other Providers: Sheila Hawkins Hospital Stay Data Consultations 01/28/25 20:23 ED Decision to Admit Stat Diagnostic Imagining Performed Abdomen/Pelvis CT 01/28/25 18:33 Exam(s): CT ABDOMEN + PELVIS With Contrast IV Amt: 90 ml optiray 320 EXAM: CT Abdomen and Pelvis With Intravenous Contrast CLINICAL HISTORY: Reason for exam: LE weakness, L hip/back pain, urinary symptoms. TECHNIQUE: Axial computed tomography images of the abdomen and pelvis with intravenous contrast. CTDI is 22.37 mGy and DLP is 1076.87 mGy-cm. Automated exposure control was utilized for the study. A dose lowering technique was utilized adhering to the principles of ALARA. CONTRAST: Patient received 90 ml optiray 320 of IV contrast COMPARISON: 11/22/2022 FINDINGS: ABDOMEN: Liver: Unremarkable. Gallbladder and bile ducts: Unremarkable. Pancreas: Unremarkable. Spleen: Unremarkable. Adrenals: Unremarkable. Kidneys and ureters: Patchy enhancement of the left kidney consistent with acute pyelonephritis. Urothelial thickening in the left ureter. No obstructing stone or hydronephrosis. Normal enhancement of the right kidney. No perinephric abscess. Stomach and bowel: Unremarkable. PELVIS: Appendix: No findings to suggest acute appendicitis. Bladder: Unremarkable. Reproductive: Status post hysterectomy. ABDOMEN and PELVIS: Intraperitoneal space: Unremarkable. No free air. No significant fluid collection. Bones/joints: Severe degenerative changes in the left hip. Scoliosis and multilevel degenerative changes in the spine. Soft tissues: Unremarkable. Vasculature: Unremarkable. Lymph nodes: Unremarkable. IMPRESSION: Patchy enhancement of the left kidney consistent with acute pyelonephritis. Electronically signed by: Carson Martinez MD 01/28/25 23:08 PM Pending Results Patient Have Any Pending Studies at Discharge: Yes (urine culture sensitivities ) Discharge Instructions Given to Patient (Per Discharging Provider) Ms. Segal, Jeremias were hospitalized after having back pain and weakness found to be from a urine/kidney infection. You were treated with IV antibiotics and improved greatl y. You will be discharged on oral antibiotics, cefpodoxime, take the first dose PM 98. You had some mildly elevated blood sugars, we did not check an A1c. Please follow up with your PCP for further management of your diabetes. Activity: You can do normal everyday activities as your body allows. Take rest breaks if you feel tired. Do not overexert. Stop activity if you have pain, shortness of breath or feel dizzy. Follow-up appointments: Make an appointment with your primary care physician within one week of discharge. A copy of this summary will be sent to them. Every time you see your primary care physician, or any other doctor, bring your medication list, and a list of questions. CONTACT YOUR PRIMARY CARE PROVIDER if you experience any of the following: Shortness of breath or difficulty breathing Fevers or chills Feeling tired with normal activity or experiencing dizziness or fainting Difficulty following your treatment plan, or difficulty taking medications CALL 911 OR GO TO THE EMERGENCY DEPARTMENT if you experience any of the following: Severe abdominal pain or nausea/vomiting Severe chest pain, or chest pain that radiates (moves) to your jaw or arm Sudden, severe shortness of breath or difficulty breathing Thank you for allowing us to participate in your care. Total Time Total Time Spent Total Time Spent (In Minutes): Time spent day of discharge 35 minutes including direct patient care, medication reconciliation, documentation, review of labs and images, and coordination of care. Coding Level of Care Code 15565 INP/OBS DISCH >30 MIN Diagnoses Weakness R53.1 UTI (urinary tract infection) N39.0 Hyponatremia E87.1 Type 2 diabetes mellitus E11.9 Essential hypertension I10"
== END 2025-01-30 12:25 | disposition home or self-care (01) | DRG 690 ==
LOC: ED 18:27 → 3N 21:09 → SUATTDRO 21:09 → 3N 23:10